=== PATIENT | female | born 1990 | race Caucasian/White ===

== ENCOUNTER 2022-11-22 21:46 | Outpatient (REF) | payer BC, SELFPAY ==
[2022-11-27 10:11] LABS: Age Gdln ACOG Testing Note (.); HPV Aptima Negative (Negative); IGP, Aptima HPV, rfx 16/18,45 Note (.)
== END 2022-11-22 21:47 | disposition home or self-care (01) ==
LOC: LAB 21:46
PROVIDERS: Visit Provider Obstetrics & Gynecology
DX: Z12.4 Encounter for screening for malignant neoplasm of cervix (principal)
CPT/HCPCS: 87624; G0145

== ENCOUNTER 2022-11-27 15:00 | Outpatient (OUT) | payer BC, SELFPAY ==
--- NOTE | 2022-11-27 15:05 | US_ITS ---
[address] [address] Patient Name: URVASHI ROQUE MRN: [id number] date: 1990 Sex: F Assigned Patient Location: US Current Patient Location: Accession/Order Number: [id number] Exam Date: 11/27/2022 15:06 Report Date: 11/27/2022 16:51 At the request of: RODRICK GRIFFIN Procedure: US OB anatomy EXAMINATION: US OB cervical length, US OB anatomy HISTORY: Second trimester Z34.92 COMPARISON: No relevant comparison available. FINDINGS: Pena intrauterine gestation position: Breech presentation, longitudinal lie Amniotic fluid: Subjectively normal Placenta: The placenta partially covers the internal os. Grade 0. Cervix: Closed, 4.1 cm Heart rate: 144 bpm Normal anatomy: Lateral ventricles, cerebellum, posterior fossa, nose/lips, orbits, four-chamber heart, RVOT, LVOT, diaphragm, stomach, kidneys, bladder, umbilical cord arteries, extremities Suboptimal visualization: Three-vessel cord Nonvisualization: Abdominal cord insertion, spine BIOMETRY: BPD: 4.6 cm 20 weeks 0 days, 26% HC: 17.1 cm , 19 weeks 5 days, 10% AC: 15.6 cm 20 weeks 5 days, 50% FL: 3.3 cm 20 weeks 1 days, 29% EFW:351.6 grams ; 12 ounces, 36% FL/AC: 21.0 FL/BPD: 70.7 HC/AC: 1.1 GESTATIONAL AGE: Age by EDC: 20 weeks 4 days SOO by EDC: 04/12/2023 Age by current US: 20 weeks 1 day SOO by current US: IMPRESSION: Closed cervix measuring 4.1 cm Partial placenta previa Electronically authenticated by: PRABHJOT LINDSEY Date: 11/27/2022 16:51
--- NOTE | 2022-11-27 15:05 | US_ITS ---
[address] [address] Patient Name: URVASHI ROQUE MRN: [id number] date: 1990 Sex: F Assigned Patient Location: US Current Patient Location: Accession/Order Number: [id number] Exam Date: 11/27/2022 15:06 Report Date: 11/27/2022 16:51 At the request of: RODRICK GRIFFIN Procedure: US OB cervical length EXAMINATION: US OB cervical length, US OB anatomy HISTORY: Second trimester Z34.92 COMPARISON: No relevant comparison available. FINDINGS: Pena intrauterine gestation position: Breech presentation, longitudinal lie Amniotic fluid: Subjectively normal Placenta: The placenta partially covers the internal os. Grade 0. Cervix: Closed, 4.1 cm Heart rate: 144 bpm Normal anatomy: Lateral ventricles, cerebellum, posterior fossa, nose/lips, orbits, four-chamber heart, RVOT, LVOT, diaphragm, stomach, kidneys, bladder, umbilical cord arteries, extremities Suboptimal visualization: Three-vessel cord Nonvisualization: Abdominal cord insertion, spine BIOMETRY: BPD: 4.6 cm 20 weeks 0 days, 26% HC: 17.1 cm , 19 weeks 5 days, 10% AC: 15.6 cm 20 weeks 5 days, 50% FL: 3.3 cm 20 weeks 1 days, 29% EFW:351.6 grams ; 12 ounces, 36% FL/AC: 21.0 FL/BPD: 70.7 HC/AC: 1.1 GESTATIONAL AGE: Age by EDC: 20 weeks 4 days SOO by EDC: 04/12/2023 Age by current US: 20 weeks 1 day SOO by current US: IMPRESSION: Closed cervix measuring 4.1 cm Partial placenta previa Electronically authenticated by: PRABHJOT LINDSEY Date: 11/27/2022 16:51
[2022-12-02 00:07] LABS: AFP Value 108.9 ng/mL (.); Gest. Age on Collection Date 19.1 weeks (.); Gestat. Age Based On As provided (.); Insulin Dep Diabetes No (.); Maternal Age At EDD 32.1 yr (.); OSBR Risk 1 IN 225 (.); Results Report (.)
== END 2022-11-27 15:01 ==
LOC: US 15:00
PROVIDERS: PCP Family Medicine; Visit Provider Obstetrics & Gynecology
DX: O44.42 Low lying placenta NOS or without hemorrhage, second trimester (principal); Z3A.20 20 weeks gestation of pregnancy
CPT/HCPCS: 76805; 76817; 82105

== ENCOUNTER 2022-11-29 14:29 | Outpatient (OUT) | payer BC, SELFPAY | END 2022-11-29 14:30 | LOC: LAB 11-30 14:30 | PROVIDERS: PCP Family Medicine; Visit Provider Obstetrics & Gynecology | DX: Z34.90 Encounter for supervision of normal pregnancy, unspecified, unspecified trimester (principal) | CPT/HCPCS: 36415 ==

== ENCOUNTER 2023-02-05 11:29 | Outpatient (OUT) | payer BC, SELFPAY ==
[2023-02-05 12:06] LABS: Basophils Absolute Auto 0.1 10^3/uL (0.0-0.1); Basophils Percent Auto 0.3 % (0.2-2.0); Eosinophils Absolute Auto 0.2 10^3/uL (0.0-0.7); Eosinophils Percent Auto 1.1 % (0.9-7.0); Hematocrit 34.8 % (36.0-48.0); Hemoglobin 11.4 g/dL (12.0-16.0); Immature Granulocytes Abs Auto 0.13 10^3/uL (0.00-0.03); Immature Granulocytes Pct Auto 0.8 % (0.0-0.5); Lymphocytes Absolute Auto 3.4 10^3/uL (1.2-3.8); Lymphocytes Percent Auto 21.8 % (20.5-60.0); Mean Corpuscular HGB Conc 32.8 g/dL (29.9-35.2); Mean Corpuscular Hemoglobin 29.2 pg (26.7-34.0); Mean Corpuscular Volume 89.2 fL (81.0-99.0); Mean Platelet Volume 11.7 fL (9.5-13.5); Monocytes Absolute Auto 0.7 10^3/uL (0.3-0.8); Monocytes Percent Auto 4.4 % (1.7-12.0); Neutrophils Absolute Auto 11.2 10^3/uL (1.4-6.5); Neutrophils Percent Auto 71.6 % (43.0-75.0); Platelet Count 177 10^3/uL (150-450); White Blood Count 15.6 10^3/uL (4.0-11.0)
== END 2023-02-05 11:30 | disposition home or self-care (01) ==
LOC: LAB 11:29
PROVIDERS: PCP Family Medicine; Visit Provider Obstetrics & Gynecology
DX: Z34.92 Encounter for supervision of normal pregnancy, unspecified, second trimester (principal)
CPT/HCPCS: 36415; 85025

== ENCOUNTER 2023-03-07 08:50 | Outpatient (OUT) | payer BC, SELFPAY ==
--- NOTE | 2023-03-07 14:04 | US_ITS ---
[address] [address] Patient Name: URVASHI ROQUE MRN: [id number] date: 1990 Sex: F Assigned Patient Location: [facility] Current Patient Location: Accession/Order Number: [id number] Exam Date: 03/07/2023 14:05 Report Date: 03/07/2023 18:27 At the request of: RODRICK GRIFFIN Procedure: US OB BPP w non-stress EXAMINATION: US OB BPP w non-stress HISTORY: O99.283 THYROID DIESEASE COMPARISON: No relevant comparison available. TECHNIQUE: Ultrasound biophysical profile was performed in the radiology department. FINDINGS: BREATHING MOVEMENTS: 2.0 GROSS BODY MOVEMENTS: 2.0 TONE: 2.0 QUALITATIVE AMNIOTIC FLUID VOLUME: 2.0 PRESENTATION: CEPHALIC HEART RATE: 138.5 bpm H.B./min AMNIOTIC FLUID VOLUME: 16.4 cm cm GESTATIONAL AGE: 34 weeks 6 days CONCLUSION: Total biophysical profile score: 8.0 Electronically authenticated by: PRABHJOT LINDSEY Date: 03/07/2023 18:27
[2023-03-07 15:11] VITALS: BP 141/76; PULSE 95
== END 2023-03-07 15:21 | disposition home or self-care (01) ==
LOC: US 08:52 → FBC 14:04
PROVIDERS: PCP Family Medicine; Visit Provider Obstetrics & Gynecology
DX: O99.283 Endocrine, nutritional and metabolic diseases complicating pregnancy, third trimester (principal); E07.9 Disorder of thyroid, unspecified; Z3A.34 34 weeks gestation of pregnancy
CPT/HCPCS: 76818

== ENCOUNTER 2023-03-10 10:30 | Outpatient (OUT) | payer BC, SELFPAY ==
[2023-03-10 19:43] VITALS: BP 144/88; PULSE 93
[2023-03-10 20:09] VITALS: BP 141/93; PULSE 100
[2023-03-10 20:58] LABS: Basophils Percent Auto 0.3 % (0.2-2.0); Eosinophils Absolute Auto 0.1 10^3/uL (0.0-0.7); Eosinophils Percent Auto 0.4 % (0.9-7.0); Hematocrit 34.7 % (36.0-48.0); Immature Granulocytes Abs Auto 0.07 10^3/uL (0.00-0.03); Immature Granulocytes Pct Auto 0.5 % (0.0-0.5); Lymphocytes Absolute Auto 3.6 10^3/uL (1.2-3.8); Lymphocytes Percent Auto 28.3 % (20.5-60.0); Mean Corpuscular HGB Conc 31.7 g/dL (29.9-35.2); Mean Corpuscular Hemoglobin 27.6 pg (26.7-34.0); Mean Corpuscular Volume 87.2 fL (81.0-99.0); Mean Platelet Volume 10.9 fL (9.5-13.5); Monocytes Absolute Auto 0.7 10^3/uL (0.3-0.8); Monocytes Percent Auto 5.1 % (1.7-12.0); Neutrophils Absolute Auto 8.4 10^3/uL (1.4-6.5); Neutrophils Percent Auto 65.4 % (43.0-75.0); Platelet Count 289 10^3/uL (150-450); Red Blood Count 3.98 10^6/uL (4.20-5.40); Red Cell Distribution Width 13.4 % (11.0-15.0); White Blood Count 12.8 10^3/uL (4.0-11.0)
[2023-03-10 21:11] LABS: Alanine Aminotransferase 25 U/L (14-59); Aspartate Amino Transferase 15 U/L (15-37); Uric Acid 2.9 mg/dL (2.6-6.0)
[2023-03-10 21:23] LABS: Bilirubin Urine NEGATIVE (NEGATIVE); Blood Urine NEGATIVE (NEGATIVE); Clarity Urine CLEAR (CLEAR); Color Urine LT. YELLOW (YELLOW); Glucose Urine UA NEGATIVE (NEGATIVE); Ketones Urine NEGATIVE (NEGATIVE); Leukocyte Esterase Urine SMALL (NEGATIVE); Nitrite Urine NEGATIVE (NEGATIVE); Protein Urine NEGATIVE (NEG/TRACE); Specific Gravity Urine 1.025 (1.005-1.025); Urobilinogen Urine 0.2 EU/dL (0.2-1.0)
[2023-03-10 21:24] LABS: Urine Microscopic Indicated YES
[2023-03-10 21:28] LABS: Creatinine Urine Random 109.85 mg/dL (20.00-300.00); Protein Creatinine Ratio Urine 0.11; Total Protein Urine Random 12.1 mg/dL (<=11.9)
[2023-03-10 21:37] LABS: Bacteria Urine MODERATE #/HPF (NONE SEEN); Mucus Urine MODERATE (NONE SEEN); RBC Urine 0-2 #/HPF (0-2); Squamous Epithelial Cell Urine MODERATE #/LPF (NONE/RARE)
[2023-03-10 21:38] LABS: Cast Seen? NONE SEEN #/LPF (NONE SEEN); Crystals Seen? None Seen #/HPF (None Seen); Urine Culture Indicated YES
[2023-03-10 21:46] VITALS: BP 147/87; PULSE 90
== END 2023-03-10 22:07 | disposition home or self-care (01) ==
LOC: FBCO 10:31 → FBC 19:36
PROVIDERS: Obstetrics & Gynecology Gynecology; PCP Family Medicine; Visit Provider Obstetrics & Gynecology
DX: O99.283 Endocrine, nutritional and metabolic diseases complicating pregnancy, third trimester (principal); E07.9 Disorder of thyroid, unspecified; Z3A.35 35 weeks gestation of pregnancy
CPT/HCPCS: 36415; 59025; 81001; 82570; 82575; 84156; 84450; 84460; 84520; 84550; 85025; 87086

== ENCOUNTER 2023-03-13 07:14 | Outpatient (OUT) | payer BC, SELFPAY ==
[2023-03-13 11:32] VITALS: TEMP 36.2
[2023-03-13 11:35] VITALS: BP 129/78; PULSE 82
--- NOTE | 2023-03-13 11:41 | US_ITS ---
[address] [address] Patient Name: URVASHI ROQUE MRN: [id number] date: 1990 Sex: F Assigned Patient Location: [facility] Current Patient Location: [facility] Accession/Order Number: [id number] Exam Date: 03/13/2023 11:45 Report Date: 03/13/2023 19:11 At the request of: RODRICK GRIFFIN Procedure: US OB BPP w non-stress EXAMINATION: US OB BPP w non-stress HISTORY: Thyroid disease during O99.283 COMPARISON: No relevant comparison available. TECHNIQUE: Ultrasound biophysical profile was performed in the radiology department. FINDINGS: BREATHING MOVEMENTS: 2.0 GROSS BODY MOVEMENTS: 2.0 TONE: 2.0 QUALITATIVE AMNIOTIC FLUID VOLUME: 2.0 PRESENTATION: CEPHALIC HEART RATE: 155.2 bpm H.B./min AMNIOTIC FLUID VOLUME: 17.9 cm cm GESTATIONAL AGE: 35 weeks 4 days CONCLUSION: Total biophysical profile score: 8.0 Electronically authenticated by: PRABHJOT LINDSEY Date: 03/13/2023 19:11
[2023-03-13] MEDS: BETAMETHASONE ACE/BETAMETHASONE SOD PHOS 30 MG/5 ML 12 MG IM (12:34)
== END 2023-03-13 12:45 | disposition home or self-care (01) ==
LOC: US 07:15 → FBC 11:26
PROVIDERS: PCP Family Medicine; Visit Provider Obstetrics & Gynecology
DX: O13.3 Gestational [pregnancy-induced] hypertension without significant proteinuria, third trimester (principal); Z3A.35 35 weeks gestation of pregnancy; O99.283 Endocrine, nutritional and metabolic diseases complicating pregnancy, third trimester; E07.9 Disorder of thyroid, unspecified
CPT/HCPCS: 76818; 87081; 96372; J0702

== ENCOUNTER 2023-03-13 20:03 | Outpatient (REF) | payer BC, SELFPAY | END 2023-03-13 20:04 | disposition home or self-care (01) | LOC: LAB 20:03 | PROVIDERS: PCP Family Medicine; Visit Provider Obstetrics & Gynecology | DX: Z34.93 Encounter for supervision of normal pregnancy, unspecified, third trimester (principal) | CPT/HCPCS: 87081 ==

== ENCOUNTER 2023-03-14 07:29 | Outpatient (RCR) | payer BC, SELFPAY ==
[2023-03-14] MEDS: BETAMETHASONE ACE/BETAMETHASONE SOD PHOS 30 MG/5 ML 12 MG IM (11:05)
[2023-03-14 11:13] VITALS: BP 128/88; PULSE 117; RESP 16; TEMP 36.6; O2SAT 98
--- NOTE | 2023-03-14 11:15 | PC.NURSE ---
1100: Pt to [facility] amb. with toddler son. Seated in chair. VSS. Denies adverse reaction from previous injection day before. 1105: Medicated with Celestone 12mg IM to left dorsal gluteal. No bleeding to site. Pt. tolerates without c/o. 1110: D/c'd amb. to home.
== END 2023-04-10 23:59 | disposition home or self-care (01) ==
LOC: INF 07:29
PROVIDERS: PCP Family Medicine; Visit Provider Obstetrics & Gynecology
DX: O36.8990 Maternal care for other specified fetal problems, unspecified trimester, not applicable or unspecified (principal); Z3A.00 Weeks of gestation of pregnancy not specified
CPT/HCPCS: 96372; J0702

== ENCOUNTER 2023-03-16 07:50 | Outpatient (OUT) | payer BC, SELFPAY ==
[2023-03-16 11:06] VITALS: BP 120/69; PULSE 96
== END 2023-03-16 11:34 | disposition home or self-care (01) ==
LOC: FBCO 07:51 → FBC 11:00
PROVIDERS: PCP Family Medicine; Visit Provider Obstetrics & Gynecology
DX: O99.283 Endocrine, nutritional and metabolic diseases complicating pregnancy, third trimester (principal); E07.9 Disorder of thyroid, unspecified; Z3A.00 Weeks of gestation of pregnancy not specified
CPT/HCPCS: 59025

== ENCOUNTER 2023-03-20 07:53 | Outpatient (OUT) | payer BC, SELFPAY ==
--- NOTE | 2023-03-20 11:14 | US_ITS ---
[address] [address] Patient Name: URVASHI ROQUE MRN: [id number] date: 1990 Sex: F Assigned Patient Location: [facility] Current Patient Location: Accession/Order Number: [id number] Exam Date: 03/20/2023 11:16 Report Date: 03/20/2023 18:45 At the request of: RODRICK GRIFFIN Procedure: US OB BPP w non-stress EXAMINATION: US OB BPP w non-stress HISTORY: Thyroid disease in third trimester O99.283, E07.9 COMPARISON: No relevant comparison available. TECHNIQUE: Ultrasound biophysical profile was performed in the radiology department. FINDINGS: BREATHING MOVEMENTS: 2.0 GROSS BODY MOVEMENTS: 2.0 TONE: 2.0 QUALITATIVE AMNIOTIC FLUID VOLUME: 2.0 PRESENTATION: CEPHALIC HEART RATE: 157.9 bpm H.B./min AMNIOTIC FLUID VOLUME: 15.7 cm cm GESTATIONAL AGE: 36 weeks 4 days CONCLUSION: Total biophysical profile score: 10.0 Electronically authenticated by: PRABHJOT LINDSEY Date: 03/20/2023 18:45
[2023-03-20 11:50] VITALS: BP 132/76; PULSE 89
[2023-03-20 12:34] VITALS: TEMP 35.8
== END 2023-03-20 13:00 | disposition home or self-care (01) ==
LOC: US 07:53 → FBC 11:12
PROVIDERS: PCP Family Medicine; Visit Provider Obstetrics & Gynecology
DX: O99.283 Endocrine, nutritional and metabolic diseases complicating pregnancy, third trimester (principal); E07.9 Disorder of thyroid, unspecified; Z3A.36 36 weeks gestation of pregnancy
CPT/HCPCS: 76818

== ENCOUNTER 2023-03-22 06:00 | Inpatient (IN) | payer BC, SELFPAY ==
[2023-03-22] VITALS (28 sets, daily range): BP systolic 113–200; BP diastolic 63–104; PULSE 67–102; RESP 18; TEMP 36.2–36.4
[2023-03-22 07:36] LABS: Hematocrit 34.5 % (36.0-48.0); Hemoglobin 11.1 g/dL (12.0-16.0); Mean Corpuscular HGB Conc 32.2 g/dL (29.9-35.2); Mean Corpuscular Hemoglobin 27.5 pg (26.7-34.0); Mean Corpuscular Volume 85.6 fL (81.0-99.0); Platelet Count 210 10^3/uL (150-450); Red Blood Count 4.03 10^6/uL (4.20-5.40); Red Cell Distribution Width 14.1 % (11.0-15.0); White Blood Count 17.8 10^3/uL (4.0-11.0)
[2023-03-22 08:15] LABS: Cannabinoid Screen Urine POSITIVE (NEGATIVE); Phencyclidine Screen Urine NEGATIVE (NEGATIVE)
[2023-03-22 08:16] LABS: Amphetamine Screen Urine NEGATIVE (NEGATIVE); Barbiturates Screen Urine NEGATIVE (NEGATIVE); Benzodiazepines Screen Urine NEGATIVE (NEGATIVE); Buprenorphine Screen Urine NEGATIVE (NEGATIVE); Cocaine Screen Urine NEGATIVE (NEGATIVE); Methadone Screen Urine NEGATIVE (NEGATIVE); Methamphetamines Screen Urine NEGATIVE (NEGATIVE); Opiate Screen Urine NEGATIVE (NEGATIVE); Oxycodone Screen Urine NEGATIVE (NEGATIVE); Tricyclic Antidepressant Urine NEGATIVE (NEGATIVE)
[2023-03-22] MEDS: 0.9 % SODIUM CHLORIDE 1,000 ML 125 ML IV ×2 (11:46→15:45)
[2023-03-22] MEDS: ONDANSETRON PF 4 MG/2 ML VIAL IV ×2 (13:03→21:10)
[2023-03-22] MEDS: FENTANYL CITRATE/PF 100 MCG/2 ML VIAL EPIDURAL (15:45)
--- NOTE | 2023-03-22 16:53 | PM.OBPRCVD ---
Procedure events: No Care Intrapartal events: None Induction method: per pitocin protocol Delivery augmentation: rupture of membranes and pitocin Delivery monitor: external FHT and external uterine Route of delivery: Episiotomy Description: none Laceration description: periurethral - 1st degree Delivery repair: Vicryl Estimated blood loss (mL): 300 Anesthesia type: Epidural Disposition: PACU Infant Delivery date: 03/22/23 Gender: female presentation: vertex Placental delivery description: Spontaneous cord description: 3 Vessels
[2023-03-23 01:22] VITALS: BP 133/74; PULSE 79; TEMP 36.8
[2023-03-23] MEDS: ONDANSETRON PF 4 MG/2 ML VIAL IV (04:50)
[2023-03-23 06:31] LABS: Basophils Percent Auto 0.3 % (0.2-2.0); Eosinophils Percent Auto 0.2 % (0.9-7.0); Hematocrit 31.3 % (36.0-48.0); Hemoglobin 9.8 g/dL (12.0-16.0); Immature Granulocytes Abs Auto 0.11 10^3/uL (0.00-0.03); Immature Granulocytes Pct Auto 0.8 % (0.0-0.5); Lymphocytes Absolute Auto 2.6 10^3/uL (1.2-3.8); Lymphocytes Percent Auto 17.8 % (20.5-60.0); Mean Corpuscular HGB Conc 31.3 g/dL (29.9-35.2); Mean Corpuscular Hemoglobin 26.8 pg (26.7-34.0); Mean Corpuscular Volume 85.8 fL (81.0-99.0); Mean Platelet Volume 10.4 fL (9.5-13.5); Monocytes Absolute Auto 0.7 10^3/uL (0.3-0.8); Monocytes Percent Auto 4.5 % (1.7-12.0); Neutrophils Absolute Auto 11.1 10^3/uL (1.4-6.5); Neutrophils Percent Auto 76.4 % (43.0-75.0); Platelet Count 252 10^3/uL (150-450); Red Blood Count 3.65 10^6/uL (4.20-5.40); White Blood Count 14.6 10^3/uL (4.0-11.0)
--- NOTE | 2023-03-23 07:25 | W.PC.ACHO ---
Registration Status: ADM IN Primary Language: Bhutanese Preferred Language: Bhutanese Active Medications Generic Name Dose Route Start Last Admin Trade Name Freq PRN Reason Stop Dose Admin Acetaminophen 650 mg 03/22/23 16:52 Acetaminophen 325 Mg Tablet PO Q6H PRN Mild Pain Al Hydroxide/Mg Hydroxide 2,400 mg 03/22/23 16:52 Magnesium Hydroxide 2,400 Mg/10 Ml Oral.Susp PO Q6H PRN Dyspepsia Benzocaine/Menthol 1 applic 03/22/23 16:52 Benzocaine/Menthol 85 Gram [place] Bottle TOPICAL Q2H PRN Pain Carboprost Tromethamine 250 mcg 03/22/23 06:22 Carboprost Tromethamine 250 Mcg/Ml 1 Ml Vial IM 03/24/23 06:22 Q15M PRN Bleeding Diphtheria/Pertussis/Tetanus Vacc 0.5 ml 03/24/23 09:00 Adacel Diph,Pertuss(Acell),Tet Vac/Pf 0.5 Ml Adult Syringe IM 03/24/23 09:01 .ONCE ONE Docusate Sodium 100 mg 03/23/23 09:00 Docusate Sodium 100 Mg Capsule PO BID LUZMARIA Ephedrine Sulfate 5 mg 03/22/23 11:29 Ephedrine Sulfate 50 Mg/Ml Vial IV 03/23/23 11:30 Q5M PRN Blood Pressure - Low Sodium Chloride 1,000 mls @ 125 mls/hr 03/22/23 06:30 03/22/23 15:45 Sodium Chloride 0.9% 1,000 Ml IV 125 mls/hr .Q8H LUZMARIA Administration Oxytocin/Sodium Chloride 10 unit in 500 mls @ 6 mls/hr 03/22/23 09:30 03/22/23 12:50 Pitocin 10 Unit/500 Ml-Ns IV 18 mls/hr CONT LUZMARIA Infusion Ibuprofen 600 mg 03/22/23 16:52 Ibuprofen 600 Mg Tablet PO Q6H PRN Moderate Pain Lidocaine 5 ml 03/22/23 06:27 Lidocaine Viscous 2% 15 Ml Solution TOPICAL ONCE PRN Pain Lidocaine 1 ml 03/22/23 06:27 Lidocaine Hcl 1% 200 Mg/20 Ml Mdv INJ ONCE PRN Pain Lidocaine 5 ml 03/22/23 11:29 Lidocaine Hcl 2% Pf 100 Mg/5 Ml Vial INJ 03/23/23 11:31 Q1H PRN epidural Measles/Mumps/Rubella Vaccine Live 0.5 ml 03/24/23 09:00 Measles,Mumps,Rubella Vacc/Pf 0.5 Ml Vial SQ 03/24/23 09:01 .ONCE ONE Methylergonovine Maleate 0.2 mg 03/22/23 06:22 Methylergonovine Maleate 0.2 Mg/Ml Ampule IM 03/24/23 06:22 ONCE PRN Uterine Contractility/Contract Methylergonovine Maleate 0.2 mg 03/22/23 06:22 Methylergonovine Maleate 0.2 Mg Tablet PO 03/24/23 06:22 Q4H PRN Uterine Contractility/Contract Misoprostol 600 mcg 03/22/23 06:22 Misoprostol 100 Mcg Tablet PO 03/24/23 06:22 ONCE PRN Uterine Bleeding Misoprostol 800 mcg 03/22/23 06:22 Misoprostol 100 Mcg Tablet SL 03/24/23 06:22 ONCE PRN Uterine Bleeding Misoprostol 1,000 mcg 03/22/23 06:22 Misoprostol 100 Mcg Tablet UT 03/24/23 06:22 ONCE PRN Uterine Bleeding Naloxone HCl 0.4 mg 03/22/23 11:29 Naloxone Hcl 0.4 Mg/Ml Vial IV 03/23/23 11:30 ONCE PRN epidural Ondansetron HCl 4 mg 03/22/23 06:22 03/23/23 04:50 Ondansetron Pf 4 Mg/2 Ml Vial IV 4 mg Q6H PRN Administration Nausea And Vomiting Ondansetron HCl 4 mg 03/22/23 06:22 Ondansetron 4 Mg Rapdis Tablet SL Q6H PRN Nausea And Vomiting Oxytocin 10 unit 03/22/23 06:22 Oxytocin 10 Unit/Ml Vial IM 03/24/23 06:22 ONCE PRN Bleeding Senna 17.2 mg 03/22/23 20:00 Sennosides 8.6 Mg Tablet PO QHS PRN Constipation Simethicone 80 mg 03/22/23 16:52 Simethicone 80 Mg Tab.Chew PO QID PRN Abdominal Distention Temazepam 15 mg 03/22/23 16:52 Temazepam 15 Mg Capsule PO QHS PRN Sleep Witch Amaya/Glycerin 1 pad 03/22/23 16:52 Glycerin/Witch Amaya Pads TOPICAL Q2H PRN Pain Diet Category Date Time Status Regular Consistency Diet Diet 03/22/23 16:52 Active Respiratory Oxygen Delivery Method Room Air Catheter Date Urinary Catheter Removed 03/22/23
--- NOTE | 2023-03-23 08:07 | PM.OBPN ---
OB - PN: Subj Subjective Patient comments: no complaints and pain well controlled [place] status: doing well Exam Constitutional Vital Signs, click to edit/add: Last Vital Signs Temp 98.2 F 03/23/23 01:22 Pulse 79 03/23/23 01:22 Resp 18 03/22/23 17:13 BP 133/74 03/23/23 01:22 O2 Del Method Room Air 03/22/23 17:13 Documenting provider has reviewed patient's vital signs: yes Common normals: no apparent distress Respiratory Common normals: normal respiratory effort and clear to auscultation bilaterally Cardio Common normals: regular rate and regular rhythm Extremity Common normals: no calf tenderness Results Labs Labs: Short CBC 03/23/23 Range/Units 06:23 WBC 14.6 H (4.0-11.0) 10^3/uL Hgb 9.8 L (12.0-16.0) g/dL Hct 31.3 L (36.0-48.0) % Plt Count 252 (150-450) 10^3/uL OB - PN: A/P Plan - Vaginal Delivery day: 1 Plan: routine care Time Spent with Patient Time: Total time spent is greater than 50% in coordination of care (as documented) at patient's floor/unit and/or counseling patient: Total time spent with greater than 50% in coordination of care (as documented) at patient's floor/unit and/or counseling patient: less than 15 minutes
[2023-03-23 09:25] VITALS: RESP 16
[2023-03-23 09:27] VITALS: BP 138/79; PULSE 96; TEMP 36.3
[2023-03-23] MEDS: ONDANSETRON 4 MG RAPDIS TABLET SL (14:27)
--- NOTE | 2023-03-23 15:31 | SWNOTE1 ---
SW consulted due to positive THC drug screen. SW met with pt and father of baby. Pt's sister in room as well. Pt and father of baby did voice they have everything they need at home for baby. They do have a 2 year old son at home as well. Pt and father of baby are appropriate with baby. Pt does admit to THC use during . Pt had nausea and vomiting during , this helped with it. Pt was prescribed Zofran as well and used that on and off as well. Pt does not plan on continuing use at home. Pt does not have a medical marijuana card. Babies cord was sent. 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 At this time no questions or concerns. SHADI called [facility] CPS and made report. HIPPA form sent to Kitty.
[2023-03-23 16:46] VITALS: BP 167/94; PULSE 78
[2023-03-28 10:11] LABS: Cannabinoid Positive (.); Carboxy THC Conf, MS, UR >750 ng/mL (Cutoff=10)
== END 2023-03-23 18:25 | disposition home or self-care (01) | DRG 807 ==
PROVIDERS: Admitting Provider Obstetrics & Gynecology; PCP Family Medicine; Visit Provider Obstetrics & Gynecology
DX: O99.284 Endocrine, nutritional and metabolic diseases complicating childbirth (principal); Z37.0 Single live birth; E89.0 Postprocedural hypothyroidism; O71.82 Other specified trauma to perineum and vulva; Z3A.37 37 weeks gestation of pregnancy; Z88.1 Allergy status to other antibiotic agents; Z88.0 Allergy status to penicillin; Z88.2 Allergy status to sulfonamides; Z79.890 Hormone replacement therapy; Z79.899 Other long term (current) drug therapy; Z90.49 Acquired absence of other specified parts of digestive tract; Z85.850 Personal history of malignant neoplasm of thyroid; Z92.3 Personal history of irradiation; Z83.3 Family history of diabetes mellitus; Z82.49 Family history of ischemic heart disease and other diseases of the circulatory system; Z83.49 Family history of other endocrine, nutritional and metabolic diseases
CPT/HCPCS: 36415; 59050; 59410; 80307; 80349; 85025; 85027; 86850; 86900; 86901; 96365; 96375; 96376

== ENCOUNTER 2023-03-28 09:55 | Observation (INO) | payer BC, SELFPAY ==
[2023-03-28] VITALS (27 sets, daily range): BP systolic 132–185; BP diastolic 78–111; PULSE 73–109; RESP 16–20; TEMP 36.4–36.8; O2SAT 94
--- NOTE | 2023-03-28 10:21 | PC.NURSE ---
Pt states feels well and denies any concerns. Feel so much better than after my first baby Denies headache,visual disturbances or epigastric discomfort. Good appetite with BM since delivery. Milk in and feeding is going great response. States had induced hypertension with both pregnancies, induced at 37 weeks for elevated pressures and was taking Labetolol 200mg BID prior to delivery. No medication prescribe at discharge. Today has elevated BP's, no complaints or symptoms. TC to Dr Jara and reported initial bp, states Stop there, Admit her and I will call back with orders. Currently in OR case. Care relinquished to Cheryl SHERMAN. Pt moved to room 251 for further care.
[2023-03-28] MEDS: LABETALOL HCL 200 MG TABLET PO (10:53)
[2023-03-28] MEDS: MAGNESIUM SULFATE IN WATER 2 GM/50 ML PREMIX IV (10:57)
[2023-03-28] MEDS: 0.9 % SODIUM CHLORIDE 1,000 ML 75 ML IV (10:58)
[2023-03-28] MEDS: MAGNESIUM SULFATE IN WATER 40 GM/1,000 ML IV.SOLN IV (11:18)
[2023-03-28 11:43] LABS: Basophils Absolute Auto 0.1 10^3/uL (0.0-0.1); Basophils Percent Auto 0.6 % (0.2-2.0); Eosinophils Absolute Auto 0.2 10^3/uL (0.0-0.7); Eosinophils Percent Auto 1.2 % (0.9-7.0); Hematocrit 35.6 % (36.0-48.0); Hemoglobin 11.3 g/dL (12.0-16.0); Immature Granulocytes Abs Auto 0.07 10^3/uL (0.00-0.03); Immature Granulocytes Pct Auto 0.5 % (0.0-0.5); Lymphocytes Absolute Auto 3.3 10^3/uL (1.2-3.8); Lymphocytes Percent Auto 22.4 % (20.5-60.0); Mean Corpuscular HGB Conc 31.7 g/dL (29.9-35.2); Mean Corpuscular Hemoglobin 26.8 pg (26.7-34.0); Mean Corpuscular Volume 84.6 fL (81.0-99.0); Mean Platelet Volume 10.1 fL (9.5-13.5); Monocytes Absolute Auto 0.6 10^3/uL (0.3-0.8); Monocytes Percent Auto 3.9 % (1.7-12.0); Neutrophils Absolute Auto 10.5 10^3/uL (1.4-6.5); Neutrophils Percent Auto 71.4 % (43.0-75.0); Platelet Count 396 10^3/uL (150-450); Red Blood Count 4.21 10^6/uL (4.20-5.40); Red Cell Distribution Width 14.3 % (11.0-15.0); White Blood Count 14.7 10^3/uL (4.0-11.0)
--- NOTE | 2023-03-28 11:47 | PC.NURSE ---
0950- Patient admitted as observation patient following follow up. Report received from LANE Hernandez IBCLC regarding elevated blood pressures during follow up, patient asymptomatic, +3 pitting edema BLE, good appetite, and BM this morning. LANE Hernandez IBCLC spoke with Dr. Jara's surgery nurse and received orders to admit patient as observation status and Dr. Jara will call back with further orders. Seizure precautions initiated. Ice water provided. 0955- Patient admitted into room 251 for observation of HTN. Initial assessment completed by this RN. Lungs clear bilaterally throughout, patient denies shortness of breath or difficulty breathing, bowel sounds present, patient reports BM this morning, and flatus present. Heart sounds strong and regular. Patient denies chest pain. Upper DTRs +1 bilaterally and lower DTRs +1 bilaterally. Clonus absent. Patient denies headache, epigastric pain, vision changes, or dizziness. States has been feeling great since going home. Temp WNL at 98.0 F orally. See vital sign monitor capture for recurring vital signs. 1013- 20g IV initiated in R hand. Saline locked at this time until further orders received. Patient updated on plan of care and RN educates patient on awaiting orders from Dr. Jara. 1029- Dr. Jara called, no answer at this time. Surgery called and Dr. Jara no longer in unit. 1032- Dr. Jara called, no answer at this time. 1033- Dr. Jara's office called. Office nurse states Dr. Jara in patient room at this time. RN urges importance of phone call. Dr. Jara aware of elevated blood pressures SBP >160s/ DBP >90s and states he will call back in 5 mins to give further orders. 1034- Dr. Jara calls back with orders to obtain IV access, run PIH panel labs, administer Labetalol 200mg PO now, Labetalol 200mg PO BID to begin after stat dose, Magnesium sulfate 2gm bolus dose to be administered now followed by 2gm maintenance dose. Orders read back and verified.
[2023-03-28 11:51] LABS: INR <0.93; Prothrombin Time 9.3 sec (9.0-11.6)
[2023-03-28 11:52] LABS: D Dimer 1.39 mg/L FEU (<=0.59)
[2023-03-28 11:56] LABS: Alanine Aminotransferase 22 U/L (14-59); Albumin Globulin Ratio 0.6; Albumin Level 2.6 g/dL (3.4-5.0); Alkaline Phosphatase 100 U/L (46-116); Anion Gap 13.9; Aspartate Amino Transferase 22 U/L (15-37); BUN Creatinine Ratio 10.3; Bilirubin Total 0.3 mg/dL (0.2-1.0); Calcium 8.6 mg/dL (8.5-10.1); Carbon Dioxide 25.3 mmol/L (21.0-32.0); Chloride 103 mmol/L (98-107); Estimated GFR (African America >60 (>=60); Estimated GFR (Non-African Ame >60 (>=60); Globulin 4.2 g/dL; Glucose 121 mg/dL (74-106); Potassium 3.2 mmol/L (3.5-5.1); Sodium 139 mmol/L (136-145); Total Protein 6.8 g/dL (6.4-8.2); Uric Acid 3.2 mg/dL (2.6-6.0)
[2023-03-28] MEDS: LABETALOL HCL 100 MG TABLET PO (13:05)
[2023-03-28] MEDS: ACETAMINOPHEN 500 MG TABLET 1000 MG PO (16:10)
[2023-03-28] MEDS: LABETALOL HCL 200 MG TABLET 300 MG PO (22:28)
[2023-03-29] VITALS (11 sets, daily range): BP systolic 116–161; BP diastolic 76–89; PULSE 72–86; RESP 14; TEMP 36.7–36.8
[2023-03-29] MEDS: 0.9 % SODIUM CHLORIDE 1,000 ML 50 ML IV (00:37)
--- NOTE | 2023-03-29 01:56 | PC.NURSE ---
Report given to Jasson Lopez RN.
[2023-03-29] MEDS: MAGNESIUM SULFATE IN WATER 40 GM/1,000 ML IV.SOLN IV (07:18)
--- NOTE | 2023-03-29 07:44 | PM.OBPN ---
OB - PN: Subj Subjective Interval history: pt presented to l&d for follow up, bp's were elevated, pt had a very mild headache, pt denies epigastric pain or visual changes, urinating well, pt denies cp sob ct, ambulating well Patient comments: pain well controlled infant status: doing well and well Exam Constitutional Vital Signs, click to edit/add: Last Vital Signs Temp 98.1 F 03/29/23 04:30 Pulse 76 03/29/23 07:21 Resp 16 03/28/23 23:28 BP 148/89 H 03/29/23 07:21 Pulse Ox 94 L 03/28/23 09:25 O2 Del Method Room Air 03/28/23 23:28 Documenting provider has reviewed patient's vital signs: yes Common normals: no apparent distress Respiratory Common normals: clear to auscultation bilaterally Cardio Common normals: regular rate and regular rhythm GI Common normals: Normal to inspection, nondistended, normoactive bowel sounds present Extremity Common normals: no clubbing, cyanosis or edema and no calf tenderness Results Labs Labs: Short CBC 03/28/23 Range/Units 11:01 WBC 14.7 H (4.0-11.0) 10^3/uL Hgb 11.3 L (12.0-16.0) g/dL Hct 35.6 L (36.0-48.0) % Plt Count 396 (150-450) 10^3/uL BMP 03/28/23 11:01 Sodium 139 Potassium 3.2 L Chloride 103 Carbon Dioxide 25.3 BUN 6.0 L Creatinine 0.58 Glucose 121 H Calcium 8.6 Liver Function 03/28/23 Range/Units 11:01 Total Bilirubin 0.3 (0.2-1.0) mg/dL AST 22 (15-37) U/L ALT 22 (14-59) U/L Alkaline Phosphatase 100 (46-116) U/L Albumin 2.6 L (3.4-5.0) g/dL OB - PN: A/P Plan - Vaginal Delivery day: 7 Comment: elevated bp-labs reviewed, cont magnesium, if bp controlled will dc home later today on labetolol, precautions given, rto l&d tomorrow for bp check Time Spent with Patient Time: Total time spent is greater than 50% in coordination of care (as documented) at patient's floor/unit and/or counseling patient: Total time spent with greater than 50% in coordination of care (as documented) at patient's floor/unit and/or counseling patient: 25 - 35 minutes
[2023-03-29] MEDS: LABETALOL HCL 200 MG TABLET 300 MG PO (08:01)
--- NOTE | 2023-03-29 08:07 | W.PC.ACHO ---
Registration Status: ADM CLYDE Primary Language: Kittitian Preferred Language: Kittitian Active Medications Generic Name Dose Route Start Last Admin Trade Name Freq PRN Reason Stop Dose Admin Acetaminophen 1,000 mg 03/28/23 15:24 03/28/23 16:10 Acetaminophen 500 Mg Tablet PO 1,000 mg Q6H PRN Administration Pain Calcium Gluconate 1,000 mg 03/28/23 10:36 Calcium Gluconate 1,000 Mg/10 Ml Vial IVP ONCE PRN Magnesium Toxicity Magnesium Sulfate 40 gm in 1,000 mls @ 50 mls/hr 03/28/23 10:45 03/28/23 11:18 Magnesium Sulf 40 G/1,000 Ml IV 50 mls/hr Q13H LUZMARIA Administration Sodium Chloride 1,000 mls @ 50 mls/hr 03/28/23 21:34 Sodium Chloride 0.9% 1,000 Ml IV .Q20H LUZMARIA Labetalol HCl 300 mg 03/28/23 23:00 03/28/23 22:28 Labetalol Hcl 200 Mg Tablet PO 300 mg BID LUZMARIA Administration Diet Category Date Time Status Regular Consistency Diet Diet 03/28/23 12:25 Active IV Insertion/Site Date of IV Line Insertion [ 03/28/23 Short PIV (<1.75 in) 20g right Hand] IV Insertion Time [Short PIV ( 10:13 <1.75 in) 20g right Hand] Neurology Patient orientation (short person,place,time,situation list) Respiratory Pulse Oximetry 94 Oxygen Delivery Method Room Air Oxygen Delivery Method Room Air Oxygen Delivery Method Room Air Oxygen Delivery Method Room Air Oxygen Delivery Method Room Air Oxygen Delivery Method Room Air Cardiology Heart Sounds Strong,Regular Bowels Date of Last Bowel Movement [ 03/28/23 All Quadrants] Date of Last Bowel Movement 03/28/23 Renal Bladder Pattern Continent
--- NOTE | 2023-03-29 08:07 | W.PC.ACHO ---
Registration Status: ADM CLYDE Primary Language: Luxembourger Preferred Language: Luxembourger Active Medications Generic Name Dose Route Start Last Admin Trade Name Freq PRN Reason Stop Dose Admin Acetaminophen 1,000 mg 03/28/23 15:24 03/28/23 16:10 Acetaminophen 500 Mg Tablet PO 1,000 mg Q6H PRN Administration Pain Calcium Gluconate 1,000 mg 03/28/23 10:36 Calcium Gluconate 1,000 Mg/10 Ml Vial IVP ONCE PRN Magnesium Toxicity Magnesium Sulfate 40 gm in 1,000 mls @ 50 mls/hr 03/28/23 10:45 03/29/23 07:18 Magnesium Sulf 40 G/1,000 Ml IV 50 mls/hr Q13H LUZMARIA Administration Sodium Chloride 1,000 mls @ 50 mls/hr 03/28/23 21:34 03/29/23 00:37 Sodium Chloride 0.9% 1,000 Ml IV 50 mls/hr .Q20H LUZMARIA Administration Labetalol HCl 300 mg 03/29/23 08:00 03/29/23 08:01 Labetalol Hcl 200 Mg Tablet PO 300 mg TID LUZMARIA Administration Diet Category Date Time Status Regular Consistency Diet Diet 03/28/23 12:25 Active IV Insertion/Site Date of IV Line Insertion [ 03/28/23 Short PIV (<1.75 in) 20g right Hand] IV Insertion Time [Short PIV ( 10:13 <1.75 in) 20g right Hand] Neurology Patient orientation (short person,place,time,situation list) Respiratory Pulse Oximetry 94 Oxygen Delivery Method Room Air Oxygen Delivery Method Room Air Oxygen Delivery Method Room Air Oxygen Delivery Method Room Air Oxygen Delivery Method Room Air Oxygen Delivery Method Room Air Cardiology Heart Sounds Strong,Regular Bowels Date of Last Bowel Movement [ 03/28/23 All Quadrants] Date of Last Bowel Movement 03/28/23 Renal Bladder Pattern Continent
[2023-03-29] MEDS: ACETAMINOPHEN 500 MG TABLET 1000 MG PO (09:26)
--- NOTE | 2023-03-29 10:24 | PC.NURSE ---
LC into room, infant at breast with active nursing noted. Mom uses boppy pillow for support and continues to support infant back. Denies concerns with . Pt aware of [facility] group and continued support with services as needed.
--- NOTE | 2023-03-29 10:34 | PC.NURSE ---
1010- Magnesium infusion discontinued per physicians orders. BP assessed, 116/82 at this time.
== END 2023-03-29 13:16 | disposition home or self-care (01) ==
LOC: FBC 09:59
PROVIDERS: Admitting Provider Obstetrics & Gynecology; PCP Family Medicine; Visit Provider Obstetrics & Gynecology
DX: O16.5 Unspecified maternal hypertension, complicating the puerperium (principal)
CPT/HCPCS: 36415; 80053; 84550; 85025; 85378; 85384; 85610; 85730; 86850; 86900; 86901; 96365; 96366; 96376; G0378

== ENCOUNTER 2024-01-17 16:30 | Outpatient (OUT) | payer BC, SELFPAY ==
--- OUTSIDE RECORDS SUMMARY | 2024-01-17 16:35 | XMS_ITS | CCD ---
Author Organization [facility] Care Team Providers Care Technical Service Representative Name Role Phone Ko Monique Unavailable Unavailable ENGELER, G NORMA Referring Unavailable ENGELER, G NORMA Attending Unavailable ENGELER, G NORMA Referring Unavailable ENGELER, G NORMA Referring Unavailable ENGELER, G NORMA Referring Unavailable ENGELER, G NORMA Referring Unavailable ENGELER, G NORMA Attending Unavailable ENGELER, G NORMA Referring Unavailable ENGELER, G NORMA Attending Unavailable ENGELER, G NORMA Referring Unavailable ENGELER, G NORMA Referring Unavailable ENGELER, G NORMA Referring Unavailable ENGELER, G NORMA Referring Unavailable JULIENNE HORTA Referring Unavailable SHANNON, AIXA Consulting Unavailable SHANNONAIXA WALDROP Admitting Unavailable SHANNONAIXA WALDROP Attending Unavailable NADERER, SKINNY A Primary Care Unavailable MAREK ., DR MENSAH Admitting Unavailable MAREK ., DR MENSAH Attending Unavailable NADERER, SKINNY A Primary Care Unavailable MAREK ., DR MENSAH Consulting Unavailable NADERER, SKINNY A Primary Care Unavailable SHANNON, AIXA Admitting Unavailable SHANNONAIXA WALDROP Attending Unavailable SHANNONAIXA Consulting Unavailable NADERER, SKINNY A Primary Care Unavailable MAREK ., DR MENSAH Admitting Unavailable MAREK ., DR MENSAH Attending Unavailable MAREK ., DR MENSAH Consulting Unavailable LAURA, DR RUDDY Goldstein Consulting Unavailable SHANNON, AIXA Admitting Unavailable SHANNONAIXA WALDROP Attending Unavailable SHANNONAIXA WALDROP Consulting Unavailable NADERER, SKINNY A Primary Care Unavailable FAWWAD, GALVAN H Admitting Unavailable FAWWAD, GALVAN H Attending Unavailable FAWWAD, GALVAN H Consulting Unavailable NADERER, SKINNY A Primary Care Unavailable Marek, Rodrick Attending Provider [phone] Skinny Schumacher Primary Care Unavailable Rodrick Jara Attending Unavailable Rodrick Jara Admitting Unavailable FAISAL MANSFIELD Attending Unavailable Allergies Allergy Classification Reported Allergen(s) Allergy Type Date of Onset Reaction(s) Facility (1 source) Sulfamethoxazole / Trimethoprim; Translations: [SULFAMETHOXAZOLE-TR IMETHOPRIM] Drug Allergy [facility] Repository (1 source) Amoxicillin / Clavulanate Drug Allergy [facility] Repository (1 source) bee venom Drug allergy (disorder) [facility] Repository (1 source) Sulfamethoxazole / Trimethoprim Drug Allergy [facility] Repository Problems Active Problems Problem Classification Problem Date Documented Da te Episodic/Chronic Cancer of thyroid (1 source) Malignant neoplasm of thyroid gland; Translations: [Malignant neoplasm of thyroid gland] Onset: 07-19-2016 Chronic Essential hypertension (1 source) Essential (primary) hypertension; Translations: [Essential (primary) hypertension] Onset: 03-28-2023 Chronic Immunizations and screening for infectious disease (1 source) Encounter for screening for other infectious and parasitic diseases; Translations: [ENC SCREENING OTH INF PARASITIC DZ] Onset: 09-15-2022 Episodic Menstrual disorders (4 sources) Irregular menstruation, unspecified; Translations: [IRREGULAR MENSTRUATION UNSPECIFIED] Onset: 08-18-2022 Chronic Other and delivery including normal (1 source) Encounter for supervision of normal , unspecified, first trimester; Translations: [ENC SUP NORMAL PREG UNS FIRST TRI] Onset: 09-05-2022 Episodic Residual codes; unclassified (1 source) Pain, unspecified; Translations: [Pain, unspecified] Onset: 04-03-2018 Unclassified (3 sources) CONTACT W/AND (SUSP) EXPOS COVID-19; Translations: [CONTACT W/AND (SUSP) EXPOS COVID-19] Onset: 09-15-2022 Past or Other Problems Problem Classification Problem Date Documented Da te Episodic/Chronic Cancer of thyroid (1 source) Personal history of malignant neoplasm of thyroid; Translations: [Personal history of malignant neoplasm of thyroid] Onset: 04-03-2018 Episodic Unclassified (1 source) CONTACT W/AND (SUSP) EXPOS COVID-19; Translations: [CONTACT W/AND (SUSP) EXPOS COVID-19] Onset: 09-11-2022 Results Test Name Value Interpretation Reference Range Facility Fibrinogenon 03-28-2023 Fibrinogen 382 mg/dL Normal 200-393 [facility] Comment on above: Order Comment: TELMA PERALTA CLIENT BILL Result Comment: A he matocrit value greater than 55% may lead to inaccurate results in coagulation testing. Patients having hematocrit values >55% require a special collection tube for coagulation studies. Please contact the laboratory at [phone] for redraw instructions. PERFORMED BY: [place] [address] PATHOLOGIST CREW ATTENDANT JANEL SAUCEDO M.D. Performed By: #### F IB-C #### [address] Fibrinogen [Mass/volume] in Platelet poor plasma by Coagulation assayOrdered By: Rodrick Jara on 03-28-2023 Fibrinogen Coag (PPP) [Mass/Vol] 382 mg/dL 200-393 [facility] Comment on above: A hematocrit value g reater than 55% may lead to inaccurate results in coagulation testing. Patients having hematocrit values >55% require a special collection tube for coagulation studies. Please contact the laboratory at [phone] for redraw instructions. Covid-19 PCR ([facility])on SARS-CoV-2 (COVID-19) RNA MEY+probe Ql (Unsp spec) Not detected Normal NOT DETECTED [facility] Comment on above: Result Comment: This test is not yet approved or cleared by the [place] FDA. When there are no FDA-approved or cleared tests available, and other criteria are met, FDA can make tests available under an emergency access mechanism called an Emergency Use Authorization (EUA). The EUA for this test is supported by the Client Technical Professional of Health and Human Service's (HHS's) declaration that circumstances exist to justify the emergency use of in vitro diagnostics for the detection and/or diagnosis of the virus that causes COVID-19. This EUA will remain in effect (meaning this test can be used) for the duration of the COVID-19 declaration justifying emergency of IVDs, unless it is terminated or revoked by FDA (after which the test may no longer be used). When diagnostic testing is negative, the possibility of a false negative should be considered in the context of a patient's recent exposures and the presence of clinical signs and symptoms consistent with SARS-CoV-2. Performed By: #### C VDTB #### [facility] [address] [place] [address] Dr. Daniel Mondragon INFLUENZA A AND B AGon 09-11 INFLUANEGH SEE BELOW Normal [facility] Comment on above: Result Comment: Nega tive for Flu A protein angiten. Infection due to Flu A cannot be ruled out. Flu A angiten in the sample may be below the detection limit of the test. Performed By: #### T SH #### [facility] [address] [place] [address] Dr. Daniel Mondragon INFLUBNEGH SEE BELOW Normal [facility] Comment on above: Result Comment: Nega tive for Flu B protein antigen. Infection due to Flu B cannot be ruled out. Flu B antigen in the sample may be below the detection limit of the test. Performed By: #### T SH #### [facility] [address] [place] [address] Dr. Daniel Mondragon INFLUENZA A AG Negative Normal NEGATIVE SEE COMMENT [facility] Comment on above: Performed By: #### T SH #### [facility] [address] [place] [address] Dr. Daniel Mondragon INFLUENZA B AG Negative Normal NEGATIVE SEE COMMENT [facility] Comment on above: Performed By: #### T SH #### [facility] [address] [place] [address] Dr. Daniel Mondragon SYMPTOMATIC COVID-19 ANTIGEN on 09-11-2022 EUA Statement SEE BELOW Normal [facility] Comment on above: Result Comment: This test has not been FDA cleared or approved, but has been authorized by the FDA under an Emergency Use Authorization (EUA) for use by authorized laboratories certified under CLIA that meet the requirements to perform moderate or high complexity testing. This test has been authorized only for the detection of proteins from SARS-CoV-2, not for any other viruses or pathogens. The emergency use of this test is authorized for the duration of the declaration that circumstances exist justifying the authorization of emergency use of in vitro diagnostic tests for detection and/or diagnosis of Covid-19 under section 564(b)(1) of the Act, 21 U.S.C. 360bbb-3(b)(1), unless the declaration is terminated or authorization is revoked sooner. Performed By: #### C VDAGS #### [facility] [address] [place] [address] Dr. Daniel Mondragon SARS-CoV-2 (COVID-19) RNA MEY+probe Ql (Unsp spec) Negative Normal NEGATIVE [facility] Comment on above: Performed By: #### C VDAGS #### [facility] [address] [place] [address] Dr. Daniel Mondragon HEP B SURFACE ANTIGEN SCREEN on 09-02-2022 HBsAg Screen Negative Normal Negative [facility] Comment on above: Performed By: #### H BSANS #### [facility] [address] [place] [address] Dr. Daniel Mondragon HEPATITIS C VIRUS AB W/ REFL EX QUANTon 09-02-2022 HCV AB Non-Reactive Normal Non Reactive [facility] Comment on above: Performed By: #### T SH #### [facility] [address] [place] [address] Dr. Daniel Mondragon Interpretation: Comment Normal [facility] Comment on above: Result Comment: Not infected with HCV unless early or acute infection is suspected (which may be delayed in an immunocompromised individual), or other evidence exists to indicate HCV infection. Performed By: #### T SH #### [facility] [address] [place] [address] Dr. Daniel Mondragon HIV 1 AND 2 WITH REFLEXon HIV Screen 4th Generation wRfx Non-Reactive Normal Non Reactive [facility] Comment on above: Result Comment: HIV Negative HIV-1/HIV-2 antibodies and HIV-1 p24 antigen were NOT detected. There is no laboratory evidence of HIV infection. Performed By: #### T SH #### [facility] [address] [place] [address] Dr. Daniel Mondragon RPR QUANTon 09-02-2022 Rapid Plasma Reagin, Quant Non-Reactive Normal NonRea<1:1 [facility] Comment on above: Result Comment: [place] Note: This test does not meet current guidelines for screening and diagnosis of syphilis. This test is intended for following treatment response in patients being treated for syphilis infection. To screen for syphilis infection, a reflex cascade that includes both RPR and a treponema-specific assay should be utilized, such as Treponema pallidum (Syphilis) Screening [place] (834435) or Rapid Plasma Reagin (RPR) Test With Reflex to Quantitative RPR and Confirmatory Treponema pallidum Antibodies (978590). Performed By: #### R PRQ #### [facility] [address] [place] [address] Dr. Daniel Mondragon RUBELLA AB IGGon 09-02-2022 Rubella Antibodies, IgG 2.14 index Normal Immune >0.99 [facility] Comment on above: Result Comment: Non- immune <0.90 Equivocal 0.90 - 0.99 Immune >0.99 Performed By: #### T SH #### [facility] [address] [place] [address] Dr. Daniel Mondragon CBC AUTO DIFFon 09-01-2022 BASO # 0.0 103/ul Normal 0.0-0.1 [facility] Comment on above: Performed By: #### C BC #### [facility] [address] [place] [address] Dr. Daniel Mondragon Basophils/100 WBC (Bld) 0.3 % Normal 0.2-2.0 [facility] Comment on above: Performed By: #### C BC #### [facility] [address] [place] [address] Dr. Daniel Mondragon EO # 0.1 103/ul Normal 0.0-0.7 [facility] Comment on above: Performed By: #### C BC #### [facility] [address] [place] [address] Dr. Daniel Mondragon Eosinophils/100 WBC (Bld) 0.7 % Critically low 0.9-7.0 [facility] Comment on above: Performed By: #### C BC #### [facility] [address] [place] [address] Dr. Daniel Mondragon Erythrocyte distribution width (RBC) [Ratio] 14.4 % Normal 11.0-15.0 [facility] Comment on above: Performed By: #### C BC #### [facility] [address] [place] [address] Dr. Daniel Mondragon Hematocrit (Bld) [Volume fraction] 38.9 % Normal 36.0-48.0 [facility] Comment on above: Performed By: #### C BC #### [facility] [address] [place] [address] Dr. Daniel Mondragon Hemoglobin (Bld) [Mass/Vol] 12.7 g/dL Normal 12.0-16.0 [facility] Comment on above: Performed By: #### C BC #### [facility] [address] [place] [address] Dr. Daniel Mondragon IG # 0.05 10e3/ul Critically high 0.00-0.03 [facility] Comment on above: Performed By: #### C BC #### [facility] [address] [place] [address] Dr. Daniel Mondragon IG % 0.3 % Normal 0.0-0.5 [facility] Comment on above: Performed By: #### C BC #### [facility] [address] [place] [address] Dr. Daniel Mondragon LYMPH # 4.0 103/ul Critically high 1.2-3.8 [facility] Comment on above: Performed By: #### C BC #### [facility] [address] [place] [address] Dr. Daniel Mondragon Lymphocytes/100 WBC (Bld) 27.2 % Normal 20.5-60.0 [facility] Comment on above: Performed By: #### C BC #### [facility] [address] [place] [address] Dr. Daniel Mondragon MANUAL DIFF REQ NO Normal [facility] Comment on above: Performed By: #### C BC #### [facility] [address] [place] [address] Dr. Daniel Mondragon MCH (RBC) [Entitic mass] 27.4 pg Normal 26.7-34.0 [facility] Comment on above: Performed By: #### C BC #### [facility] [address] [address] [address] Daniel Mondragon MCHC (RBC) [Mass/Vol] 32.6 g/dL Normal 29.9-35.2 [facility] Comment on above: Performed By: #### C BC #### [facility] [address] [place] [address] Dr. Daniel Mondragon MCV (RBC) [Entitic vol] 83.8 fL Normal 81.0-99.0 [facility] Comment on above: Performed By: #### C BC #### [facility] [address] [place] [address] Dr. Daniel Mondragon MONO # 0.6 103/ul Normal 0.3-0.8 [facility] Comment on above: Performed By: #### C BC #### [facility] [address] [place] [address] Dr. Daniel Mondragon Monocytes/100 WBC (Bld) 4.0 % Normal 1.7-12.0 [facility] Comment on above: Performed By: #### C BC #### [facility] [address] [place] [address] Dr. Daniel Mondragon NEUT # 10.0 103/ul Critically high 1.4-6.5 [facility] Comment on above: Performed By: #### C BC #### [facility] [address] [place] [address] Dr. Daniel Mondragon Neutrophils/100 WBC (Bld) 67.5 % Normal 43.0-75.0 [facility] Comment on above: Performed By: #### C BC #### [facility] [address] [place] [address] Dr. Daniel Mondragon Platelet mean volume (Bld) [Entitic vol] 10.4 fL Normal 9.5-13.5 [facility] Comment on above: Performed By: #### C BC #### [facility] [address] [place] [address] Dr. Daniel Mondragon PLT 285 103/ul Normal 150-450 [facility] Comment on above: Performed By: #### C BC #### [facility] [address] [place] [address] Dr. Daniel Mondragon RBC 4.64 106/ul Normal 4.20-5.40 [facility] Comment on above: Performed By: #### C BC #### [facility] [address] [place] [address] Dr. Daniel Mondragon WBC 14.8 103/ul Critically high 4.0-11.0 [facility] Comment on above: Performed By: #### C BC #### [facility] [address] [place] [address] Dr. Daniel Mondragon CULTURE URINEon 09-01-2022 CULTURE URINE Culture Observations : NO GROWTH. Normal [facility] Comment on above: Performed By: #### T SH #### [facility] [address] [place] [address] Dr. Daniel Mondragon GLYCOHEMOGLOBIN A1Con 2022 ADA RECOMMENDATION SEE BELOW Normal [facility] Comment on above: Result Comment: ADA RECOMMENDED LIMIT 4.0 - 6.0 ADA THERAPEUTIC TARGET < 7.0 ACTION SUGGESTED > 7.0 Performed By: #### T SH #### [facility] [address] [place] [address] Dr. Daniel Mondrgaon Glucose [Mass/Vol] 137 mg/dL Normal [facility] Comment on above: Performed By: #### T SH #### [facility] [address] [place] [address] Dr. Daniel Mondragon HbA1c (Bld) [Mass fraction] 6.4 % Critically high 4.5-6.2 [facility] Comment on above: Performed By: #### T SH #### [facility] [address] [place] [address] Dr. Daniel Mondragon TSHon 09-01-2022 TSH 0.879 uIU/mL Normal 0.358-3.740 [facility] Comment on above: Performed By: #### T SH #### [facility] [address] [place], [place] [address] Dr. Daniel Mondragon TYPE AND SCREENon 09-01-2022 TYPE AND SCREEN Negative Normal [facility] Comment on above: Performed By: #### T #### [facility] [address] [place], [place] [address] Dr. Daniel Mondragon US PREG TVon 08-18-2022 US PREG TV EXAMINATION: US PREG TV HISTORY: Irregular periods ; evaluate for viability COMPARISON: No relevant comparison available. FINDINGS: GESTATIONAL SAC: Present and normal appearing. YOLK SAC: Present and normal appearing. POLE: Present and normal appearing. CARDIAC: Present. UTERUS: Normal size and appearance. OVARIES: Right: Corpus lutein cyst. Left: Not seen. CERVIX: 3.2 cm in length and closed. CUL-DE-SAC: Normal. OTHER: None. AGE BY LMP: 9 weeks 4 days SOO BY LMP: 03/19/2023 AGE BY US CRL: 6 weeks 1 day SOO BY US CRL: 04/12/2023 IMPRESSION: 1. Single live intrauterine . Electronically authenticated by: RUDDY SANCHEZ Date: 2022-08-18 16:19 Normal [facility] SARS-CoV-2 (COVID-19) RNA MEY+probe Ql (Unsp spec) Not detected Normal NOT DETECTED [facility] Comment on above: Result Comment: When diagnostic testing is negative, the possibility of a false negative should be considered in the context of a patient's recent exposures and the presence of clinical signs and symptoms consistent with SARS-CoV-2. This test is not yet approved or cleared by the [place] FDA. When there are no FDA-approved or cleared tests available, and other criteria are met, FDA can make tests available under an emergency access mechanism called an Emergency Use Authorization (EUA). The EUA for this test is supported by the [place] of Health and Human Service's declaration that circumstances exist to justify the emergency use of in vitro diagnostics for the detection and/or diagnosis of the virus that causes COVID-19. This EUA will remain in effect for the duration of the COVID-19 declaration justifying emergency of IVDs, unless it is terminated or revoked by the FDA (after which the test may no longer be used). Performed By: #### C VDTBH #### [facility] [address] [place] [address] Dr. Daniel Mondragon INFLUENZA A AND B AGon 06-13 [facility] SEE BELOW Normal [facility] Comment on above: Result Comment: Nega tive for Flu A protein angiten. Infection due to Flu A cannot be ruled out. Flu A angiten in the sample may be below the detection limit of the test. Performed By: #### I NFLUAB #### [facility] [address] [place] [address] Dr. Daniel Mondragon INFLUBNEG SEE BELOW Normal [facility] Comment on above: Result Comment: Nega tive for Flu B protein antigen. Infection due to Flu B cannot be ruled out. Flu B antigen in the sample may be below the detection limit of the test. Performed By: #### I NFLUAB #### [facility] [address] [place] [address] Dr. Daniel Mondragon INFLUENZA A AG Negative Normal NEGATIVE SEE COMMENT [facility] Comment on above: Performed By: #### I NFLUAB #### [facility] [address] [place] [address] Dr. Daniel Mondragon INFLUENZA B AG Negative Normal NEGATIVE SEE COMMENT [facility] Comment on above: Performed By: #### I NFLUAB #### [facility] [address] [place] [address] Dr. Daniel Mondragon Covid-19 PCR ([facility])on 03-11 SARS-CoV-2 (COVID-19) RNA MEY+probe Ql (Unsp spec) Not detected Normal NOT DETECTED [facility] Comment on above: Result Comment: When diagnostic testing is negative, the possibility of a false negative should be considered in the context of a patient's recent exposures and the presence of clinical signs and symptoms consistent with SARS-CoV-2. This test is not yet approved or cleared by the [place] FDA. When there are no FDA-approved or cleared tests available, and other criteria are met, FDA can make tests available under an emergency access mechanism called an Emergency Use Authorization (EUA). The EUA for this test is supported by the [place] of Health and Human Service's declaration that circumstances exist to justify the emergency use of in vitro diagnostics for the detection and/or diagnosis of the virus that causes COVID-19. This EUA will remain in effect for the duration of the COVID-19 declaration justifying emergency of IVDs, unless it is terminated or revoked by the FDA (after which the test may no longer be used). Performed By: #### C VDTB #### [facility] [address] [place] [address] Dr. Daniel Mondragon Covid-19 PCR ([facility])on SARS-CoV-2 (COVID-19) RNA MEY+probe Ql (Unsp spec) Not detected Normal NOT DETECTED [facility] Comment on above: Result Comment: This test is not yet approved or cleared by the [place] FDA. When there are no FDA-approved or cleared tests available, and other criteria are met, FDA can make tests available under an emergency access mechanism called an Emergency Use Authorization (EUA). The EUA for this test is supported by the Client Technical Professional of Health and Human Service's (HHS's) declaration that circumstances exist to justify the emergency use of in vitro diagnostics for the detection and/or diagnosis of the virus that causes COVID-19. This EUA will remain in effect (meaning this test can be used) for the duration of the COVID-19 declaration justifying emergency of IVDs, unless it is terminated or revoked by FDA (after which the test may no longer be used). When diagnostic testing is negative, the possibility of a false negative should be considered in the context of a patient's recent exposures and the presence of clinical signs and symptoms consistent with SARS-CoV-2. Performed By: #### C VDTB #### [facility] [address] [place], [place] [address] Dr. Daniel Mondragon CNCOon 08-13-2018 CNCO Letter Text Normal [facility] CBC and Differentialon 04-03 Abs Baso 0.04 k/uL Normal 0.00-0.10 [facility] Abs [place] 0.45 k/uL Normal 0.00-0.86 [facility] Abs Neut 6.61 k/uL Normal 1.45-7.50 [facility] Basophils/100 WBC (Bld) 0.4 % Normal [facility] Eosinophils #/vol (Bld) 0.24 10*3/uL Normal 0.00-0.45 [facility] Eosinophils/100 WBC (Bld) 2.3 % Normal [facility] Erythrocyte distribution width Ratio (RBC) 12.9 % Normal 11.5-15.0 [facility] Hematocrit Volume Fraction (Bld) 43.0 % Normal 36.0-46.0 [facility] Hemoglobin mass conc (Bld) 14.4 g/dL Normal 11.5-15.5 [facility] Lymphocytes #/vol (Bld) 3.05 10*3/uL Normal 1.00-4.00 [facility] Lymphocytes/100 WBC (Bld) 29.4 % Normal [facility] MCH Entitic mass (RBC) 30.4 pG Normal 26.0-34.0 [facility] MCHC mass conc (RBC) 33.5 g/dL Normal 30.5-36.0 [facility] MCV Entitic volume (RBC) 90.9 fL Normal 80.0-100.0 [facility] Monocytes/100 WBC (Bld) 4.3 % Normal [facility] Neutrophils/100 WBC (Bld) 63.6 % Normal [facility] Platelet mean volume Entitic volume (Bld) 10.5 fL Normal 9.0-12.7 [facility] Platelets #/vol (Bld) 253 10*3/uL Normal 150-400 [facility] RBC #/vol (Bld) 4.73 10*6/uL Normal 3.90-5.20 [facility] WBC #/vol (Bld) 10.39 10*3/uL Normal 3.70-11.00 [facility] CNOVon 04-03-2018 CNOV Office Visit (RADTSA ) RESTREPOCAITLYN Delacruz ([id number]) 1990 F Date Time Provider Department 04/03/18 1:30 PM LAB/PORT RADT DIONE MARTIN During your visit today, we recorded the following information about you: Ashley Johnson LPN, LANE 04/03/2018 4:35 PM Signed Caitlyn Kaye presents in office today for: Lab Draw during Office Visit . Ordering Provider: Norma Evangelista M.D. Test (s) ordered: CBC T4 Total 11934 TSH Sedrate Thyroglobulin Ab and QT LDH Method for obtaining blood: Phlebotomy was performed, accessing left antecubital vein. Needle removed intact. Dressing secured. Patient denies discomfort, dizziness, light-headedness or weakness and left the department without assist. Ashley Johnson LPN Referring Provider: JULIENNE HORTA [[id number]] Allergies As of Date: 04/03/2018 Noted Allergy Reaction SEPTRA (SULFAMETHOXAZOLE-TRIM ETHO*07/19/2016 4 - Hives Date Reviewed: 04/03/2018 Reviewed by: Ashley Johnson RN - Fully Assessed Reason for Visit: Phlebotomy [1172] Primary Visit Diagnosis:History of thyroid cancer [Z85.850] Other Visit Diagnosis:Body aches [R52] Prescriptions as of 04/03/2018 Sig: CYTOMEL ORAL Take 10 mcg by mouth. LEVOTHYROXINE 200 MCG TABLET TRI-SPRINTEC (28) 0.18 MG(7)/* Problem List As Of Date 04/03/2018 Noted Resolved Thyroid cancer (HCC) [C73] INVALID FOR* History of thyroid cancer [Z85.850] INVALID FOR* Visit Notes: >> Ashley Johnson RN SunApr 03, 2018 4:33 PM Status: Signed Caitlyn Kaye presents in office today for: Lab Draw during Office Visit . Ordering Provider: Norma Evangelista M.D. Test (s) ordered: CBC T4 Total 08486 TSH Sedrate Thyroglobulin Ab and QT LDH Method for obtaining blood: Phlebotomy was performed, accessing left antecubital vein. Needle removed intact. Dressing secured. Patient denies discomfort, dizziness, light-headedness or weakness and left the department without assist. Ashley TAVO Johnson Encounter Status:Closed by ASHLEY JOHNSON on 04/03/18 Normal [facility] Office Visit (RADTSA ) CAITLYN RESTREPO ([id number]) 1990 F Date Time Provider Department 04/03/18 11:45 AM Ronnell EVANGELISTA During your visit today, we recorded the following information about you: Temperature Pulse Respiration Blood pressure 98.1 degrees 83/minute 16/minute 137/86 Weight 86.6 kg G Norma Evangelista MD 04/08/2018 10:57 AM Signed Radiation Oncology - follow-up Note PATIENT NAME: Caitlyn Restrepo PATIENT DIAGNOSIS: 26 year old female with thyroid cancer, papillary carcinoma, stage pT2 N0. HPI: Patient underwent I-131 ablative therapy on 08/09/16, I-131 dose 75 mCi. Overall doing well. She is having some new joint pain both upper and lower extremity. Taking nonsteroidal medicines without significant improvement. Still active and working. Pain gets better as the day goes on. She does give a history of her mom with rheumatoid arthritis. laboratory:Results for CAITLYN RESTREPO ( ) as of 04/08/2018 10:46 Ref. Range 07/19/2016 15:32 09/21/2017 11:26 04/03/2018 12:03 04/03/2018 12:18 LD Latest Ref Range: 135 - 214 U/L 205 Hematocrit Latest Ref Range: 36.0 - 46.0 % 43.0 Thyroglobulin Latest Ref Range: 1.6 - 59.9 ng/mL 2.7 2.4 0.9 (L) TG Antibody Screen Latest Ref Range: <14.4 IU/mL 1.7 1.8 1.6 T4 Latest Ref Range: 5.5 - 10.2 ug/dL 14.2 (H) TSH Latest Ref Range: 0.400 - 5.500 uU/mL 2.510 Thyroglobulin Ab Latest Ref Range: <14.4 IU/mL 1.8 1.6 WBC Latest Ref Range: 3.70 - 11.00 k/uL 10.39 RBC Latest Ref Range: 3.90 - 5.20 m/uL 4.73 Hemoglobin Latest Ref Range: 11.5 - 15.5 g/dL 14.4 Platelet Count Latest Ref Range: 150 - 400 k/uL 253 MCV Latest Ref Range: 80.0 - 100.0 fL 90.9 MCH Latest Ref Range: 26.0 - 34.0 pG 30.4 MCHC Latest Ref Range: 30.5 - 36.0 g/dL 33.5 MPV Latest Ref Range: 9.0 - 12.7 fL 10.5 RDW-CV Latest Ref Range: 11.5 - 15.0 % 12.9 Neut% Latest Units: % 63.6 Abs Neut (ANC) Latest Ref Range: 1.45 - 7.50 k/uL 6.61 Lymph% Latest Units: % 29.4 Abs Lymph Latest Ref Range: 1.00 - 4.00 k/uL 3.05 [place]% Latest Units: % 4.3 Abs [place] Latest Ref Range: 0.00 - 0.86 k/uL 0.45 Eosin% Latest Units: % 2.3 Abs Eosin Latest Ref Range: 0.00 - 0.45 k/uL 0.24 Baso% Latest Units: % 0.4 Abs Baso Latest Ref Range: 0.00 - 0.10 k/uL 0.04 WSR Latest Ref Range: 0 - 20 mm/hr 8 Thyroglobulin 08/09/16 5.3, thyroglobulin antibody < 1.0. 02/22/17 4.8 3 ALLERGIES: ALLERGIES Allergen Reactions - Septra [Sulfamethox* Hives MEDICATIONS: liothyronine sodium (CYTOMEL ORAL) Take 10 mcg by mouth. levothyroxine (SYNTHROID) 200 mcg tablet TRI-SPRINTEC 0.18/0.215/0.25 mg-35 mcg (28) tab PAST MEDICAL HISTORY Diagnosis Date - Thyroid cancer (HCC) Prior radiation therapy, collagen vascular disease, or inflammatory bowel disease: No status: Patient states there is no possibility she is at this time. Educated on risks of during treatment. PAST SURGICAL HISTORY Procedure Laterality Date - REPAIR OF FOOT TENDON - THYROIDECTOMY Bilateral 2017 - TONSILLECTOMY HX FAMILY HISTORY Problem Relation Age of Onset - other (Lymphoma) Maternal Aunt SOCIAL HISTORY: Social History Substance Use Topics - Smoking status: Never Smoker - Smokeless tobacco: Never Used - Alcohol use Not on file COMPLETE REVIEW OF SYSTEMS: GENERAL: Negative for weight loss, fevers, chills, or night sweats. HEENT: Negative for sudden vision or hearing changes. NECK: Negative for masses in the neck. RESPIRATORY: Negative for cough or shortness of breath. CARDIAC: Negative for chest pain, palpitations, murmurs, or syncopal episodes. GI: Negative for nausea, vomiting, diarrhea, constipation, blood per rectum, or melena. : Negative for dysuria, hematuria, urgency, frequency or incontinence. MUSCULOSKELETAL: Negative for limitations in movement, pain, or swelling. NEURO: Negative for dizziness, headache, weakness or numbness. HEMATOLOGIC: Negative for bleeding or easy bruising. SKIN: Negative for rashes or other skin changes. PHYSICAL EXAM: KPS: 100 General Appearance: Alert and oriented. No acute distress. HEENT: NCAT. Sclera anicteric. PERRL. EOMI. Oral cavity AND oropharnyx: lips and gums normal, oral and pharyngeal mucosa moist, palate elevates normally, tongue mobile and without palpable lesions, tonsils without masses Neck: Normal ROM. No palpable cervical or supraclavicular adenopathy. Well-healed low neck incision Musculoskeletal: No edema. Normal ROM in extremities. No bone or spine tenderness. Skin: No rashes noted Lymphatics: No palpable lymphadenopathy. RADIOLOGY/LABORATORY DATA: see HPI STAGE: T: 2 N: 0 M: X ASSESSMENT: Thyroid cancer, papillary carcinoma, tall cell histology, pT2 N0 MX. PLAN: Overall patient doing well. Her thyroglobulin continues to decline. No significant post I-131 problems. She has had some recent arthralgias likely unrelated to either her history of thyroid cancer and I-131 therapy or her replacement therapy. With history of rheumatoid arthritis I recommend getting her family physician. She is having some issues with getting her TSH down and has been started on Cytomel with some success per Dr. Albright. She continues close follow-up with him as well. Recommend repeat thyroglobulin in 6 months . Signed by: Ronnell Evangelista MD cc: Julienne Horta MD ([facility]) Dr. Albright Referring Provider: Ronnell EVANGELISTA [[id number]] Allergies As of Date: 04/03/2018 Noted Allergy Reaction SEPTRA (SULFAMETHOXAZOLE-TRIM ETHO*07/19/2016 4 - Hives Date Reviewed: 04/03/2018 Reviewed by: Ashley (Tavo) LANE Johnson - Fully Assessed Reason for Visit: Follow Up [171] Primary Visit Diagnosis:History of thyroid cancer [Z85.850] Other Visit Diagnosis:Body aches [R52] Order(s):THYROGLOBULIN BLD [SQTG] Order #: [id number] FUTURE THYROGLOBULIN AB [SQTGAB] Order #: [id number] FUTURE SED RATE WESTERGREN [SQWSR] Order #: [id number] FUTURE CBC + DIFF [SQCBCDIF] Order #: [id number] FUTURE LD LACTATE DEHYDRO [SQLD6] Order #: [id number] FUTURE T4/THYROXINE BLOOD [SQT4] Order #: [id number] FUTURE TSH BLD [SQTSH] Order #: [id number] FUTURE Prescriptions as of 04/03/2018 Sig: CYTOMEL ORAL Take 10 mcg by mouth. LEVOTHYROXINE 200 MCG TABLET TRI-SPRINTEC (28) 0.18 MG(7)/* Problem List As Of Date 04/03/2018 Noted Resolved Thyroid cancer (HCC) [C73] INVALID FOR* History of thyroid cancer [Z85.850] INVALID FOR* Disposition: Return in about 6 months (around 10/02/2018). Follow-up and Disposition History Recorded Encounter Status:Closed by Ronnell EVANGELISTA MD on 04/08/18 Normal [facility] LDon 04-03-2018 LD 205 U/L Normal 135-214 [facility] PROGRESSon 04-03-2018 Protein mass conc HNO ID: [id number] Author: Ronnell Evangelista Service: (none) Author Type: Physician Type: Progress Notes Filed: 04/08/2018 10:57 AM Note Text: Radiation Oncology - follow-up Note PATIENT NAME: Caitlyn Restrepo PATIENT DIAGNOSIS: 26 year old female with thyroid cancer, papillary carcinoma, stage pT2 N0. HPI: Patient underwent I-131 ablative therapy on 08/09/16, I-131 dose 75 mCi. Overall doing well. She is having some new joint pain both upper and lower extremity. Taking nonsteroidal medicines without significant improvement. Still active and working. Pain gets better as the day goes on. She does give a history of her mom with rheumatoid arthritis. laboratory:Results for CAITLYN RESTREPO ( ) as of 04/08/2018 10:46 Ref. Range 07/19/2016 15:32 09/21/2017 11:26 04/03/2018 12:03 04/03/2018 12:18 LD Latest Ref Range: 135 - 214 U/L 205 Hematocrit Latest Ref Range: 36.0 - 46.0 % 43.0 Thyroglobulin Latest Ref Range: 1.6 - 59.9 ng/mL 2.7 2.4 0.9 (L) TG Antibody Screen Latest Ref Range: <14.4 IU/mL 1.7 1.8 1.6 T4 Latest Ref Range: 5.5 - 10.2 ug/dL 14.2 (H) TSH Latest Ref Range: 0.400 - 5.500 uU/mL 2.510 Thyroglobulin Ab Latest Ref Range: <14.4 IU/mL 1.8 1.6 WBC Latest Ref Range: 3.70 - 11.00 k/uL 10.39 RBC Latest Ref Range: 3.90 - 5.20 m/uL 4.73 Hemoglobin Latest Ref Range: 11.5 - 15.5 g/dL 14.4 Platelet Count Latest Ref Range: 150 - 400 k/uL 253 MCV Latest Ref Range: 80.0 - 100.0 fL 90.9 MCH Latest Ref Range: 26.0 - 34.0 pG 30.4 MCHC Latest Ref Range: 30.5 - 36.0 g/dL 33.5 MPV Latest Ref Range: 9.0 - 12.7 fL 10.5 RDW-CV Latest Ref Range: 11.5 - 15.0 % 12.9 Neut% Latest Units: % 63.6 Abs Neut (ANC) Latest Ref Range: 1.45 - 7.50 k/uL 6.61 Lymph% Latest Units: % 29.4 Abs Lymph Latest Ref Range: 1.00 - 4.00 k/uL 3.05 [place]% Latest Units: % 4.3 Abs [place] Latest Ref Range: 0.00 - 0.86 k/uL 0.45 Eosin% Latest Units: % 2.3 Abs Eosin Latest Ref Range: 0.00 - 0.45 k/uL 0.24 Baso% Latest Units: % 0.4 Abs Baso Latest Ref Range: 0.00 - 0.10 k/uL 0.04 WSR Latest Ref Range: 0 - 20 mm/hr 8 Thyroglobulin 3 5.3, thyroglobulin antibody < 1.0. 02/22/17 4.8 3 ALLERGIES: ALLERGIES Allergen Reactions - Septra [Sulfamethox* Hives MEDICATIONS: liothyronine sodium (CYTOMEL ORAL) Take 10 mcg by mouth. levothyroxine (SYNTHROID) 200 mcg tablet TRI-SPRINTEC 0.18/0.215/0.25 mg-35 mcg (28) tab PAST MEDICAL HISTORY Diagnosis Date - Thyroid cancer (HCC) Prior radiation therapy, collagen vascular disease, or inflammatory bowel disease: No status: Patient states there is no possibility she is at this time. Educated on risks of during treatment. PAST SURGICAL HISTORY Procedure Laterality Date - REPAIR OF FOOT TENDON - THYROIDECTOMY Bilateral 2017 - TONSILLECTOMY HX FAMILY HISTORY Problem Relation Age of Onset - other (Lymphoma) Maternal Aunt SOCIAL HISTORY: Social History Substance Use Topics - Smoking status: Never Smoker - Smokeless tobacco: Never Used - Alcohol use Not on file COMPLETE REVIEW OF SYSTEMS: GENERAL: Negative for weight loss, fevers, chills, or night sweats. HEENT: Negative for sudden vision or hearing changes. NECK: Negative for masses in the neck. RESPIRATORY: Negative for cough or shortness of breath. CARDIAC: Negative for chest pain, palpitations, murmurs, or syncopal episodes. GI: Negative for nausea, vomiting, diarrhea, constipation, blood per rectum, or melena. : Negative for dysuria, hematuria, urgency, frequency or incontinence. MUSCULOSKELETAL: Negative for limitations in movement, pain, or swelling. NEURO: Negative for dizziness, headache, weakness or numbness. HEMATOLOGIC: Negative for bleeding or easy bruising. SKIN: Negative for rashes or other skin changes. PHYSICAL EXAM: KPS: 100 General Appearance: Alert and oriented. No acute distress. HEENT: NCAT. Sclera anicteric. PERRL. EOMI. Oral cavity AND oropharnyx: lips and gums normal, oral and pharyngeal mucosa moist, palate elevates normally, tongue mobile and without palpable lesions, tonsils without masses Neck: Normal ROM. No palpable cervical or supraclavicular adenopathy. Well-healed low neck incision Musculoskeletal: No edema. Normal ROM in extremities. No bone or spine tenderness. Skin: No rashes noted Lymphatics: No palpable lymphadenopathy. RADIOLOGY/LABORATORY DATA: see HPI STAGE: T: 2 N: 0 M: X ASSESSMENT: Thyroid cancer, papillary carcinoma, tall cell histology, pT2 N0 MX. PLAN: Overall patient doing well. Her thyroglobulin continues to decline. No significant post I-131 problems. She has had some recent arthralgias likely unrelated to either her history of thyroid cancer and I-131 therapy or her replacement therapy. With history of rheumatoid arthritis I recommend getting her family physician. She is having some issues with getting her TSH down and has been started on Cytomel with some success per Dr. Albright. She continues close follow-up with him as well. Recommend repeat thyroglobulin in 6 months . Signed by: Ronnell Evangelista MD cc: Julienne Horta MD (Dr) Dr. Albright Normal [facility] Sed Rate Westergrenon 2017 Sed Rate Westergren 8 mm/hr Normal 0-20 [facility] Comment on above: Performed By: #### W SR, T4, TSH ####[facility] [address] [place], [place] [phone] T4on 04-03-2018 T4 14.2 ug/dL High 5.5-10.2 [facility] Comment on above: Performed By: #### W SR, T4, TSH ####[facility] [address] [place], [place] [phone] TSHon 04-03-2018 Thyrotropin Qn 2.510 uU/mL Normal 0.400-5.500 [facility] Comment on above: Result Comment: If t he patient is , TSH reference range varies by gestational period: First Trimester 0.100-2.500 uU/mL Second Trimester 0.200-3.000 uU/mL Third Trimester 0.300-3.000 uU/mL References: 1. Ashby Citlali M, Genaro EK, et al. Management of Thyroid Dysfunction during and : An Endocrine Society Clinical Practice Guideline. J Clin Endocrinol Metab, 2012:97:5760-2725. 2. Jc PABLO. Overview of thyroid disease in . UpToDate. 2016. Accessed on November 26, 2015. Performed By: #### W SR, T4, TSH ####[facility] [place], [place] [phone] Thyroglobulinon 04-03-2018 TG Antibody Screen 1.6 IU/mL Normal <14.4 [facility] Comment on above: Performed By: #### T SOPHIA, TG ####[place] [id number] [place], [place] [phone] Thyroglobulin 0.9 ng/mL Low 1.6-59.9 [facility] Comment on above: Result Comment: Test analyzed by the Siemens Immulite method Performed By: #### T SOPHIA, TG ####[facility] [place], [place] [phone] Thyroglobulin Abon 8 Thyroglobulin Ab Qn 1.6 [IU]/mL Normal <14.4 [facility] Comment on above: Performed By: #### T SOPHIA, TG ####[facility] [place], [place] [phone] BMPon 10-29-2017 BUN/Creatinine Ratio 16 No Units Normal - [facility] Comment on above: Performed By: #### 2 [id number], [id number], [id number] ####[facility] [address] [place] [address] Creatinine 0.7 mg/dL Normal 0.5-1.3 [facility] Comment on above: Performed By: #### 2 [id number], [id number], [id number] ####[facility] [address] [place] [address] Urea nitrogen 11 mg/dL Normal 5-21 [facility] Comment on above: Performed By: #### 2 [id number], [id number], [id number] ####[facility] [address] [place] [address] Anion gap 14 mmol/L Normal 6-16 [facility] Comment on above: Performed By: #### 2 508776, [id number], [id number] ####[facility] [address] [place] [address] Calcium 9.5 mg/dL Normal 8.9-11.1 [facility] Comment on above: Performed By: #### 2 983034, [id number], [id number] ####[facility] [address] [place] [address] Chloride 102 mmol/L Normal 101-111 [facility] Comment on above: Performed By: #### 2 399091, [id number], [id number] ####[facility] [address] [place] [address] CO2 25 mmol/L Normal 21-31 [facility] Comment on above: Performed By: #### 2 023925, [id number], [id number] ####[facility] [address] [place] [address] Glucose mass conc 134 mg/dL Normal 55-199 [facility] Comment on above: Result Comment: If t his glucose result represents a fasting glucose, interpretation should refer to the following reference range: 55-99 mg/dL Performed By: #### 2 [id number], [id number], [id number] ####[facility] [address] [place] [address] Potassium molar conc 3.8 mmol/L Normal 3.5-5.3 [facility] Comment on above: Performed By: #### 2 212973, [id number], [id number] ####[facility] [address] [place] [address] Sodium 137 mmol/L Normal 135-145 [facility] Comment on above: Performed By: #### 2 302416, [id number], [id number] ####[facility] [address] [place] [address] Hep Func Panelon 10-29-2017 BILIRUBIN.NON-GLUCURO NIDATED:MSCNC:PT:SER/ PLAS:QN: UTC Abnormal 0.1-0.9 [facility] Comment on above: Result Comment: Resu lt verified by Discern Rule. Performed result UTC (Unable to Calculate) was sent as an Alpha code due the inability to calculate a valid numeric value. Performed By: #### 2 [id number], [id number], [id number] ####[facility] [address] [place] [address] Albumin 1.3 g/dL Normal 1.1-2.2 [facility] Comment on above: Performed By: #### 2 203930, [id number], [id number] ####[facility] [address] [place] [address] Albumin 4.4 g/dL Normal 3.3-5.0 [facility] Comment on above: Performed By: #### 2 357010, [id number], [id number] ####[facility] [address] [place] [address] Alkaline phosphatase (ALP) 55 Int._Unit/L Normal 21-98 [facility] Comment on above: Performed By: #### 2 793568, [id number], [id number] ####[facility] [address] [place] [address] ALT Without P-5'-P enzyme act/vol 11 Int._Unit/L Normal 6-46 [facility] Comment on above: Performed By: #### 2 822400, [id number], [id number] ####[facility] [address] [place] [address] Aspartate aminotransferase (AST) 19 Int._Unit/L Normal 5-43 [facility] Comment on above: Performed By: #### 2 805002, [id number], [id number] ####[facility] [address] [place] [address] Bilirubin (direct) mg/dL Normal 0.1-0.4 [facility] Comment on above: Performed By: #### 2 558140, [id number], 2150682 ####[facility] [address] [place] [address] Bilirubin (total) 0.2 mg/dL Normal 0.0-1.1 [facility] Comment on above: Performed By: #### 2 472550, [id number], [id number] ####[facility] [address] [place] [address] Globulin 3.5 g/dL Normal 1.4-4.0 [facility] Comment on above: Performed By: #### 2 228535, [id number], 0166751 ####[facility] [address] [place] [address] Protein 7.9 g/dL High 6.0-7.8 [facility] Comment on above: Performed By: #### 2 125590, [id number], [id number] ####[facility] [address] [place] [address] eGFRon 10-29-2017 eGFR (black) mL/min/{1.73_m2} Normal >=59 [facility] Comment on above: Order Comment: Order added by Discern Expert. Result Comment: eGFR is race adjusted. AA=. Performed By: #### 2 868889, [id number], [id number] ####[facility] [address] [place] [address] eGFR (non-black) mL/min/{1.73_m2} Normal >=59 [facility] Comment on above: Order Comment: Order added by Discern Expert. Result Comment: Hard Tile Setter julian kidney disease could be indicated at eGFR's of less than 60 mL/min/1.73m2. Kidney failure is indicated at less than 15 mL/min/1.73m2. Performed By: #### 2 [id number], [id number], [id number] ####[facility] [address] [place] [address] CNOVon 10-03-2017 CNOV Office Visit (RADTSA ) CAITLYN RESTREPO ([id number]) 1990 F Date Time Provider Department 10/03/17 11:30 AM Ronnell EVANGELISTA During your visit today, we recorded the following information about you: Blood pressure Weight 118/70 91 kg G Norma Evangelista MD 10/05/2017 12:56 PM Signed Radiation Oncology - follow-up Note PATIENT NAME: Caitlyn Restrepo PATIENT DIAGNOSIS: 26 year old female with thyroid cancer, papillary carcinoma, stage pT2 N0. HPI: Patient underwent I-131 ablative therapy on 08/09/16, I-131 dose 75 mCi. Overall doing well. She has been started on Cytomel and feels somewhat better after this. No other new problems. laboratory:Results for CAITLYN RESTREPO ( ) as of 10/03/2017 11:39 Ref. Range 07/19/2016 15:32 09/21/2017 11:26 Thyroglobulin Latest Ref Range: 1.6 - 59.9 ng/mL 2.7 2.4 TG Antibody Screen Latest Ref Range: ANDlt;14.4 IU/mL 1.7 1.8 Thyroglobulin Ab Latest Ref Range: ANDlt;14.4 IU/mL 1.8 Thyroglobulin 08/09/16 5.3, thyroglobulin antibody ANDlt; 1.0. 02/22/17 4.8 3 ALLERGIES: ALLERGIES Allergen Reactions - Septra [Sulfamethox* Hives MEDICATIONS: liothyronine sodium (CYTOMEL ORAL) Take 10 mcg by mouth. levothyroxine (SYNTHROID) 200 mcg tablet TRI-SPRINTEC 0.18/0.215/0.25 mg-35 mcg (28) tab PAST MEDICAL HISTORY Diagnosis Date - Thyroid cancer (HCC) Prior radiation therapy, collagen vascular disease, or inflammatory bowel disease: No status: Patient states there is no possibility she is at this time. Educated on risks of during treatment. PAST SURGICAL HISTORY Procedure Laterality Date - REPAIR OF FOOT TENDON - THYROIDECTOMY Bilateral 2017 - TONSILLECTOMY HX FAMILY HISTORY Problem Relation Age of Onset - Lymphoma [OTHER] Maternal Aunt SOCIAL HISTORY: Social History Substance Use Topics - Smoking status: Never Smoker - Smokeless tobacco: Not on file - Alcohol use Not on file COMPLETE REVIEW OF SYSTEMS: GENERAL: Negative for weight loss, fevers, chills, or night sweats. HEENT: Negative for sudden vision or hearing changes. NECK: Negative for masses in the neck. RESPIRATORY: Negative for cough or shortness of breath. CARDIAC: Negative for chest pain, palpitations, murmurs, or syncopal episodes. GI: Negative for nausea, vomiting, diarrhea, constipation, blood per rectum, or melena. : Negative for dysuria, hematuria, urgency, frequency or incontinence. MUSCULOSKELETAL: Negative for limitations in movement, pain, or swelling. NEURO: Negative for dizziness, headache, weakness or numbness. HEMATOLOGIC: Negative for bleeding or easy bruising. SKIN: Negative for rashes or other skin changes. PHYSICAL EXAM: KPS: 100 General Appearance: Alert and oriented. No acute distress. HEENT: NCAT. Sclera anicteric. PERRL. EOMI. Oral cavity ANDamp; oropharnyx: lips and gums normal, oral and pharyngeal mucosa moist, palate elevates normally, tongue mobile and without palpable lesions, tonsils without masses Neck: Normal ROM. No palpable cervical or supraclavicular adenopathy. Well-healed low neck incision Musculoskeletal: No edema. Normal ROM in extremities. No bone or spine tenderness. Skin: No rashes noted Lymphatics: No palpable lymphadenopathy. RADIOLOGY/LABORATORY DATA: see HPI STAGE: T: 2 N: 0 M: X ASSESSMENT: Thyroid cancer, papillary carcinoma, tall cell histology, pT2 N0 MX. PLAN: Overall patient doing well. She does have detectable thyroglobulin after stimulation with Thyrogen however this continues to decline. Recommend repeat spot value in 6 months. She is having some issues with getting her TSH down and has been started on Cytomel with some success per Dr. Albright. She continues close follow-up with him as well. Recommend repeat thyroglobulin in 6 months and consider neck ultrasound should this value not continue to decrease. Signed by: Ronnell Evangelista MD cc: Julienne Horta MD ([facility]) Dr. Albright Referring Provider: Ronnell EVANGELISTA [[id number]] Allergies As of Date: 10/03/2017 Noted Allergy Reaction SEPTRA (SULFAMETHOXAZOLE-TRIM ETHO*07/19/2016 4 - Hives Date Reviewed: 10/03/2017 Reviewed by: Houston (Rn) LANE Wong - Fully Assessed Reason for Visit: Thyroid Cancer [879] Primary Visit Diagnosis:Thyroid cancer (HCC) [C73] Order(s):THYROGLOBULIN BLD [SQTG] Order #: [id number] FUTURE THYROGLOBULIN AB [SQTGAB] Order #: [id number] FUTURE Prescriptions as of 10/03/2017 Sig: CYTOMEL ORAL Take 10 mcg by mouth. LEVOTHYROXINE 200 MCG TABLET TRI-SPRINTEC (28) 0.18 MG(7)/* Problem List As Of Date 10/03/2017 Noted Resolved Thyroid cancer (HCC) [C73] INVALID FOR* Disposition: Return in about 6 months (around 04/04/2018). Follow-up and Disposition History Recorded Encounter Status:Closed by Ronnell EVANGELISTA MD on 10/05/17 [facility] PROGRESSon 10-03-2017 Protein mass conc HNO ID: [id number] Author: Ronnell Evangelista Service: (none) Author Type: Physician Type: Progress Notes Filed: 10/05/2017 12:56 PM Note Text: Radiation Oncology - follow-up Note PATIENT NAME: Caitlyn Restrepo PATIENT DIAGNOSIS: 26 year old female with thyroid cancer, papillary carcinoma, stage pT2 N0. HPI: Patient underwent I-131 ablative therapy on 08/09/16, I-131 dose 75 mCi. Overall doing well. She has been started on Cytomel and feels somewhat better after this. No other new problems. laboratory:Results for CAITLYN RESTREPO ( ) as of 10/03/2017 11:39 Ref. Range 07/19/2016 15:32 09/21/2017 11:26 Thyroglobulin Latest Ref Range: 1.6 - 59.9 ng/mL 2.7 2.4 TG Antibody Screen Latest Ref Range: <14.4 IU/mL 1.7 1.8 Thyroglobulin Ab Latest Ref Range: <14.4 IU/mL 1.8 Thyroglobulin 3 5.3, thyroglobulin antibody < 1.0. 02/22/17 4.8 3 ALLERGIES: ALLERGIES Allergen Reactions - Septra [Sulfamethox* Hives MEDICATIONS: liothyronine sodium (CYTOMEL ORAL) Take 10 mcg by mouth. levothyroxine (SYNTHROID) 200 mcg tablet TRI-SPRINTEC 0.18/0.215/0.25 mg-35 mcg (28) tab PAST MEDICAL HISTORY Diagnosis Date - Thyroid cancer (HCC) Prior radiation therapy, collagen vascular disease, or inflammatory bowel disease: No status: Patient states there is no possibility she is at this time. Educated on risks of during treatment. PAST SURGICAL HISTORY Procedure Laterality Date - REPAIR OF FOOT TENDON - THYROIDECTOMY Bilateral 2017 - TONSILLECTOMY HX FAMILY HISTORY Problem Relation Age of Onset - Lymphoma [OTHER] Maternal Aunt SOCIAL HISTORY: Social History Substance Use Topics - Smoking status: Never Smoker - Smokeless tobacco: Not on file - Alcohol use Not on file COMPLETE REVIEW OF SYSTEMS: GENERAL: Negative for weight loss, fevers, chills, or night sweats. HEENT: Negative for sudden vision or hearing changes. NECK: Negative for masses in the neck. RESPIRATORY: Negative for cough or shortness of breath. CARDIAC: Negative for chest pain, palpitations, murmurs, or syncopal episodes. GI: Negative for nausea, vomiting, diarrhea, constipation, blood per rectum, or melena. : Negative for dysuria, hematuria, urgency, frequency or incontinence. MUSCULOSKELETAL: Negative for limitations in movement, pain, or swelling. NEURO: Negative for dizziness, headache, weakness or numbness. HEMATOLOGIC: Negative for bleeding or easy bruising. SKIN: Negative for rashes or other skin changes. PHYSICAL EXAM: KPS: 100 General Appearance: Alert and oriented. No acute distress. HEENT: NCAT. Sclera anicteric. PERRL. EOMI. Oral cavity AND oropharnyx: lips and gums normal, oral and pharyngeal mucosa moist, palate elevates normally, tongue mobile and without palpable lesions, tonsils without masses Neck: Normal ROM. No palpable cervical or supraclavicular adenopathy. Well-healed low neck incision Musculoskeletal: No edema. Normal ROM in extremities. No bone or spine tenderness. Skin: No rashes noted Lymphatics: No palpable lymphadenopathy. RADIOLOGY/LABORATORY DATA: see HPI STAGE: T: 2 N: 0 M: X ASSESSMENT: Thyroid cancer, papillary carcinoma, tall cell histology, pT2 N0 MX. PLAN: Overall patient doing well. She does have detectable thyroglobulin after stimulation with Thyrogen however this continues to decline. Recommend repeat spot value in 6 months. She is having some issues with getting her TSH down and has been started on Cytomel with some success per Dr. Albright. She continues close follow-up with him as well. Recommend repeat thyroglobulin in 6 months and consider neck ultrasound should this value not continue to decrease. Signed by: Ronnell Evangelista MD cc: Julienne Horta MD ([facility]) Dr. Albright [facility] Thyroglobulinon 09-21-2017 TG Antibody Screen 1.8 IU/mL Normal <14.4 [facility] Comment on above: Performed By: #### T SOPHIA, TG #### [facility] [address] [id number] Thyroglobulin 2.4 ng/mL Normal 1.6-59.9 [facility] Comment on above: Result Comment: Test analyzed by the Siemens Immulite method Performed By: #### Stella CORTES, TG #### [facility] [address], [place] [id number] Thyroglobulin Abon 8 Thyroglobulin Ab Qn 1.8 [IU]/mL Normal <14.4 [facility] Comment on above: Performed By: #### Stella CORTES, TG #### [facility] [address], [place] [id number] CNNURSEon 09-18-2017 CNNURSE Nurse Visit (RADTSA) CAITLYN [id number]) 1990 F Date Time Provider Department 09/18/17 11:00 AM NURSE YENNI MARTIN During your visit today, we recorded the following information about you: Temperature Pulse Respiration Blood pressure 98.4 degrees 69/minute 18/minute 108/70 Weight 93 kg Referring Provider: Ronnell EVANGELISTA [[id number]] Allergies As of Date: 09/18/2017 Noted Allergy Reaction SEPTRA (SULFAMETHOXAZOLE-TRIM ETHO*07/19/2016 4 - Hives Date Reviewed: 03/13/2017 Reviewed by: [place] (Rn) Marvin RN - Fully Assessed Reason for Visit: Imm/Inj [58] Primary Visit Diagnosis:Thyroid cancer (HCC) [C73] Order(s):thyrotropin donte 0.9 mg injection (THYROGEN)Disp: Rfl: Prescriptions as of 09/18/2017 Sig: LEVOTHYROXINE 200 MCG TABLET TRI-SPRINTEC (28) 0.18 MG(7)/* Problem List As Of Date 09/18/2017 Noted Resolved Thyroid cancer (HCC) [C73] INVALID FOR* Prescriptions ordered this encounter Disp Refills Start End THYROTROPIN DONTE 1.1 MG INTRAMUSCULA* 09/18/2017 09/18/2017 Route: INTRAMUSCULA Encounter Status:Closed by HOUSTON WONG on 09/18/17 [facility] 09[facility]17[facility] (RADTSA[facility] CAITLYN RESTREPO ([id number]) 1990 F Date Time Provider Department 09/17/17 10:00 AM NURSE YENNI MARTIN During your visit today, we recorded the following information about you: Temperature Pulse Blood pressure Weight 98.6 degrees 84/minute 134/74 93 kg Referring Provider: Ronnell EVANGELISTA [[id number]] Allergies As of Date: 09/17/2017 Noted Allergy Reaction SEPTRA (SULFAMETHOXAZOLE-TRIM ETHO*07/19/2016 4 - Hives Date Reviewed: 03/13/2017 Reviewed by: [place] (Rn) LANE Wong - Fully Assessed Reason for Visit: Thyroid Cancer [879] Primary Visit Diagnosis:Thyroid cancer (HCC) [C73] Order(s):thyrotropin donte 0.9 mg injection (THYROGEN)Disp: Rfl: Prescriptions as of 09/17/2017 Sig: LEVOTHYROXINE 200 MCG TABLET TRI-SPRINTEC (28) 0.18 MG(7)/* Problem List As Of Date 09/17/2017 Noted Resolved Thyroid cancer (HCC) [C73] INVALID FOR* Prescriptions ordered this encounter Disp Refills Start End THYROTROPIN DONTE 1.1 MG INTRAMUSCULA* 09/17/2017 09/17/2017 Route: INTRAMUSCULA Encounter Status:Closed by HOUSTON WONG on 09/17/17 [facility] CNOVon 09-17-2017 CNOV Office Visit (RADTSA ) CAITLYN RESTREPO ([id number]) 1990 F Date Time Provider Department 09/17/17 10:30 AM Ronnell EVANGELISTA During your visit today, we recorded the following information about you: Weight Height 93 kg 1.638 m Ronnell Evangelista MD 09/18/2017 10:40 AM Signed Addended by: Ronnell EVANGELISTA MD on: 09/18/2017 10:40 AM Modules accepted: Orders Referring Provider: Ronnell EVANGELISTA [[id number]] Allergies As of Date: 09/17/2017 Noted Allergy Reaction SEPTRA (SULFAMETHOXAZOLE-TRIM ETHO*07/19/2016 4 - Hives Date Reviewed: 03/13/2017 Reviewed by: [place] (Rn) LANE Wong - Fully Assessed Primary Visit Diagnosis:Thyroid cancer (HCC) [C73] Prescriptions as of 09/17/2017 Sig: LEVOTHYROXINE 200 MCG TABLET TRI-SPRINTEC (28) 0.18 MG(7)/* Problem List As Of Date 09/17/2017 Noted Resolved Thyroid cancer (HCC) [C73] INVALID FOR* Encounter Status:Closed by Ronnell EVANGELISTA MD on 09/17/17 [facility] Encounters Encounter Date Encounter Type Care Provider Facility Start: 05-16-2023 End: 05-16-2023 ambulatory FAISAL MANSFIELD Not Available Start: 03-28-2023 End: 03-28-2023 ambulatory Skinny Schumacher Facility:[facility] Start: 03-28-2023 End: 03-28-2023 ambulatory Rodrick Jara Work Phone: [facility] Work Phone: Start: 03-28-2023 End: 03-28-2023 Departed Referred Rodrick Jara Work Phone: [facility] [place] Work Phone: Start: 09-11-2022 End: 09-12-2022 ambulatory AIXA ORTEGA Facility:[facility] Start: 09-01-2022 End: 09-02-[address] RODRICK JARA . Facility:[facility] Start: 08-18-2022 End: 08-19-2022 ambulatory SKINNY SCHUMACHER Facility:[facility] Start: 06-13-2022 End: 06-13-2022 ambulatory SKINNY SCHUMACHER Facility:[facility] Start: 03-22-2022 End: 03-22-2022 ambulatory AIXA ORTEGA Facility:[facility] Start: 11-17-2021 End: 11-17-2021 ambulatory SHAIKH Kaila MAYNARD Facility: Start: 04-03-2018 End: 04-04-2018 Patient encounter procedure Ronnell EVANGELISTA [facility] Start: 04-03-2018 End: 04-09-2018 Patient encounter procedure Ronnell EVANGELISTA [facility] Start: 10-29-2017 End: 10-30-2017 Ambulatory Ko Monique [place] [place] Start: 10-03-2017 End: 10-05-2017 Patient encounter procedure Ronnell EVANGELISTA [facility] Start: 09-21-2017 End: 09-21-2017 Patient encounter procedure Ronnell EVANGELISTA [facility] Start: 09-18-2017 End: 09-19-2017 Patient encounter procedure Ronnell EVANGELISTA [facility] Start: 09-17-2017 End: 11-20-2017 Patient encounter procedure Ronnell EVANGELISTA [facility] Payers Date Payer Category Payer Self-pay 2022 Unknown [id number] 2019 Unknown [id number] 1990 Unknown [id number] 2.16.84 [id number] 1990 Unknown [id number] 2.16.84 [id number] 1990 Unknown [id number] 2.16.84 [id number] 1990 Unknown [id number] 2.16.84 [id number] 1990 Unknown [id number] 2.16.84 [id number] 1990 Unknown [id number] 2.16.84 [id number] 1990 Unknown [id number] 1958 Self-pay [id number] Unknown MMO [id number] 95 [id number] Unknown [id number] 2.16.8 [id number] Social History Date Type Detail Facility Tobacco smoking stat [facility] Unknown if ever smoked [facility] Work Phone: Start: 1990 Sex Assigned At Female F [facility] Evaluation note Note Date & Type Note Facility Evaluation note No assessment information availa melina [facility] Work Phone: Summary Purpose Family History No Family History Records FoundNo Family History Records FoundNo Family History Records FoundNo Family History Records FoundNo Family History Records Found Advance Directives No Advanced Directives Records FoundNo Advanced Directives Records FoundNo Advanced Directives Records FoundNo Advanced Directives Records FoundNo Advanced Directives Records Found Additional Source Comments INFORMATION SOURCE (unrecogn ized section and content) DATE CREATED AUTHOR [facility] DATE CREATED AUTHOR AUTHOR'S ORGANIZ ATION 08/14/2018 [facility] DATE CREATED AUTHOR AUTHOR'S ORGANIZ ATION 09/16/2022 [facility] DATE CREATED AUTHOR AUTHOR'S ORGANIZ ATION 04/06/2023 [facility] DATE CREATED AUTHOR AUTHOR'S ORGANIZ ATION 05/18/2023 [facility] [employer] Care Teams (unrecognized sec tion and content) Team Status: Inactive Member Role Status Dates Rodrick Jara Attending Provider Active Goals (unrecognized section and content) Goals may be documented in a n alternate section FOR RECORDS PERTAINING TO PATIENTS WHO ARE OR HAVE BEEN ENROLLED IN A CHEMICAL DEPENDENCY/SUBSTANCEABUSE PROGRAM, SOME INFORMATION MAY BE OMITTED. This clinical summary was aggregated from multiple sources. Caution should be exercised in using it in the provision of clinical care. This summary normalizes information from multiple sources, and as a consequence, information in this document may materially change the coding, format and clinical context of patient data. In addition, data may be omitted in some cases. CLINICAL DECISIONS SHOULD BE BASED ON THE PRIMARY CLINICAL RECORDS. [employer] provides no warranty or guarantee of the accuracy or completeness of information in this document.
[2024-01-17 17:09] LABS: Estimated Average Glucose 131 mg/dL; Glycohemoglobin A1C 6.2 % (4.5-6.2)
[2024-01-17 17:23] LABS: Basophils Absolute Auto 0.1 10^3/uL (0.0-0.1); Basophils Percent Auto 0.6 % (0.2-2.0); Eosinophils Absolute Auto 0.3 10^3/uL (0.0-0.7); Eosinophils Percent Auto 2.7 % (0.9-7.0); Hematocrit 41.6 % (36.0-48.0); Hemoglobin 13.5 g/dL (12.0-16.0); Immature Granulocytes Abs Auto 0.05 10^3/uL (0.00-0.03); Immature Granulocytes Pct Auto 0.4 % (0.0-0.5); Lymphocytes Absolute Auto 4.8 10^3/uL (1.2-3.8); Lymphocytes Percent Auto 38.4 % (20.5-60.0); Mean Corpuscular HGB Conc 32.5 g/dL (29.9-35.2); Mean Corpuscular Hemoglobin 28.8 pg (26.7-34.0); Mean Corpuscular Volume 88.7 fL (81.0-99.0); Mean Platelet Volume 10.9 fL (9.5-13.5); Monocytes Absolute Auto 0.5 10^3/uL (0.3-0.8); Monocytes Percent Auto 4.3 % (1.7-12.0); Neutrophils Absolute Auto 6.7 10^3/uL (1.4-6.5); Neutrophils Percent Auto 53.6 % (43.0-75.0); Platelet Count 273 10^3/uL (150-450); Red Blood Count 4.69 10^6/uL (4.20-5.40); White Blood Count 12.4 10^3/uL (4.0-11.0)
[2024-01-17 17:43] LABS: Free T4 1.32 ng/dL (0.76-1.46)
[2024-01-17 17:48] LABS: Alanine Aminotransferase 28 U/L (14-59); Albumin Globulin Ratio 1.1; Albumin Level 3.9 g/dL (3.4-5.0); Alkaline Phosphatase 70 U/L (46-116); Anion Gap 11.5; Aspartate Amino Transferase 13 U/L (15-37); BUN Creatinine Ratio 17.9; Bilirubin Direct 0.1 mg/dL (0.0-0.2); Bilirubin Total 0.2 mg/dL (0.2-1.0); Calcium 9.1 mg/dL (8.5-10.1); Carbon Dioxide 27.4 mmol/L (21.0-32.0); Chloride 104 mmol/L (98-107); Chol HDL Ratio 4.5; Cholesterol 190 mg/dL (<=200); Estimated GFR (African America >60 (>=60); Estimated GFR (Non-African Ame >60 (>=60); Globulin 3.4 g/dL; Glucose 107 mg/dL (74-106); HDL Cholesterol 42 mg/dL (40-60); Potassium 3.9 mmol/L (3.5-5.1); Sodium 139 mmol/L (136-145); Thyroid Stimulating Hormone 0.785 uIU/mL (0.358-3.740); Total Protein 7.3 g/dL (6.4-8.2); Triglycerides 219 mg/dL (<=150); VLDL CHOLESTEROL 43.8 mg/dL
== END 2024-01-17 16:31 | disposition home or self-care (01) ==
LOC: LAB 16:32
PROVIDERS: PCP Family Medicine; Visit Provider Family Medicine
DX: Z00.00 Encounter for general adult medical examination without abnormal findings (principal); E89.0 Postprocedural hypothyroidism
CPT/HCPCS: 36415; 80048; 80061; 80076; 83036; 84439; 84443; 84481; 85025

== ENCOUNTER 2025-04-13 22:24 | Emergency (ER) | payer OTHER, SELFPAY ==
--- OUTSIDE RECORDS SUMMARY | 2025-04-13 22:57 | XMS_ITS | CCD ---
Author Organization [facility] Care Team Providers Care Fire Protection Engineer Name Role Phone Ko Monique Ronnell Unavailable Unavailable ENGELER, G NORMA Referring Unavailable [...] HORTA Referring Unavailable SHANNON, AIXA Consulting Unavailable SHANNON, AIXA Admitting Unavailable SHANNONAIXA WALDROP Attending Unavailable NADERER, SKINNY A Primary Care Unavailable MAREK ., DR MENSAH Admitting Unavailable MAREK ., DR MENSAH Attending Unavailable NADERER, SKINNY A Primary Care Unavailable MAREK ., DR MENSAH Consulting Unavailable NADERER, SKINNY A Primary Care Unavailable SHANNON, AIXA Admitting Unavailable SHANNONAIXA Attending Unavailable SHANNON, AIXA Consulting Unavailable NADERER, SKINNY A Primary Care Unavailable MAREK ., DR MENSAH Admitting Unavailable MAREK ., DR MENSAH Attending Unavailable MAREK ., DR MENSAH Consulting Unavailable ZIJANNA, DR RUDDY Goldstein Consulting Unavailable SHANNON, AIXA Admitting Unavailable SHANNON, AIXA Attending Unavailable SHANNON, AIXA Consulting Unavailable NADERER, SKINNY A Primary Care Unavailable FAWWAD, GALVAN H Admitting Unavailable FAWWAD, GALVAN H Attending Unavailable FAWWAD, GALVAN H Consulting Unavailable NADERER, SKINNY A Primary Care Unavailable Rodrick Jara Attending Provider [phone] FAISAL MANSFIELD Attending Unavailable SKINNY SCHUMACHER Attending Unavailable Quintin Damon Attending Unavailab Quintin Escalera Admitting Unavailab Skinny Toscano Primary Care Unavailable Allergies Allergy ClassificationReported Allergen(s)Allergy TypeDate of OnsetReaction(s) Facility (1 source)Sulfamethoxazole / Trimethoprim; Translations: [SULFAMETHOXAZOLE-TRIMETHOPRIM]Drug Mjaywyo86-11-4868PcadnpkuyOhiohealth Pickerington [facility] Repository (1 source)Amoxicillin / ClavulanateDrug AllergyThe [facility] (1 source)bee venomDrug allergy (disorder)[facility]ository (1 source)Sulfamethoxazole / TrimethoprimDrug AllergyThe [facility]ository Problems Active Problems Problem ClassificationProblemDateDocumented DateEpisodic/ChronicCancer of thyroid (1 source)Malignant neoplasm of thyroid gland; Translations: [Malignant neoplasm of thyroid gland]Onset: 49-91-1797QrnqoicGvedahyqbvgqw and screening for infectious disease (1 source)Encounter for screening for other infectious and parasitic diseases; Translations: [ENC SCREENING OTH INF PARASITIC DZ]Onset: 27-52-2092Cnlljdhb Menstrual disorders (4 sources)Irregular menstruation, unspecified; Translations: [IRREGULAR MENSTRUATION UNSPECIFIED]Onset: 07-03-5371RawzmdrGnjve and delivery including normal (1 source)Encounter for supervision of normal , unspecified, first trimester; Translations: [ENC SUPNORMAL PREG UNS FIRST TRI]Onset: 09-05-2022 EpisodicResidual codes; unclassified (1 source)Pain, unspecified; Translations: [Pain, unspecified]Onset: 04-03-2018 Unclassified (3 sources)CONTACT W/AND (SUSP) EXPOS COVID-19; Translations: [CONTACT W/AND (SUSP) EXPOS COVID-19]Onset: 09-15-2022 Past or Other Problems Problem ClassificationProblemDateDocumented DateEpisodic/ChronicCancer of thyroid (1 source)Personal history of malignant neoplasm of thyroid; Translations: [Personal history of malignant neoplasm of thyroid]Onset: 50-62-7995Mdkshhaf Unclassified (1 source)CONTACT W/AND (SUSP) EXPOS COVID-19; Translations: [CONTACT W/AND (SUSP) EXPOS COVID-19]Onset: 09-11-2022 Results Test NameValueInterpretationReference RangeFacilityFibrinogen [Mass/volume] in Platelet poor plasma by Coagulation assayOrdered By: Rodrick Jara on 03-28-2023 Fibrinogen Coag (PPP) [Mass/Vol]382 mg/hA469-494CweybzrspAultman HospitalComment on above:A hematocrit value greater than 55% may lead to inaccurate results in coagulation testing. Patientshaving hematocrit values >55% require a special collection tube for coagulation studies. Please contact the laboratory at [phone] for redraw instructions.Covid-19 PCR ([facility])on 83-09-1440PTQG-CoV-2 (COVID-19) RNA MEY+probe Ql (Unsp spec)Not detectedNormal NOT DETECTEDThe [facility] HospitalComment on above:Result Comment: This test is not yet approved or cleared by the [place] FDA. When there are no FDA- approved or cleared tests available, and other criteria are met, FDA can make tests available under an emergency access mechanism called an Emergency Use Authorization (EUA). The EUA for this test is supported by the [place] Manager of Health and Human Service's (HHS's) declaration [...] of clinical signs and symptoms consistent with SARS-CoV-2.Performed By: #### CVDTBH #### [facility] [address] [place] [address] Dr. Daniel Stevens AND B AGon 89-87-3613QCPTVEBPQELNJMercy Health Willard HospitalComment on above:Result Comment: Negative for Flu A protein angiten. Infection due to Flu A cannot be ruled out. FluA angiten in the sample may be below the detection limit of the test.Performed By: #### TSH #### [facility] [address] [place] [address] Dr. Daniel MondragonINFLUBNEGHSEE BELOWNoSycamore Medical Center on above: Result Comment: Negative for Flu B protein antigen. Infection due to Flu B cannot be ruled out. FluB antigen in the sample may be below the detection limit of the test.Performed By: #### TSH #### [facility] [address] [place] [address] Dr. Daniel Stevens AGNegativeNormalNEGATIVE SEE COMMENTThe [facility] on above:Performed By: #### TSH #### [facility] [address] [place] [address] Dr. Daniel Martinez AGNegativeNormalNEGATIVE SEE COMMENTThe [facility] on above:Performed By: #### TSH #### [facility] [address] [place] [address] Dr. Daniel BishopMATIC COVID-19 ANTIGENon 63-36-3343VBG StatementSEE BELOW [facility] on above:Result Comment: This test has not been FDA [...] declaration is terminated or authorization is revoked sooner.Performed By: #### CVDAGS #### [facility] [address] [place] [address] Dr. Daniel PalominoRS-CoV-2 (COVID-19) RNA MEY+probe Ql (Unsp spec)NegativeNormal NEGATIVEThe [facility]tering Health Troyment on above:Performed By: #### CVDAGS #### [facility] [address] [place] [address] Dr. Daniel Naylor B SURFACE ANTIGEN SCREENon 27-22-9488XJlFu ScreenNegative NormalNegativeThe [facility] HospitalComment on above:Performed By: #### HBSANS #### [facility] [address] [place] [address] Dr. Daniel Lee C VIRUS AB W/ REFLEX QUANTon 97-37-5401UVJ AB Non-ReactiveNormalNon ReactiveThe [facility] HospitalComment on above:Performed By: #### TSH #### [facility] [address] [place] [address] Dr. Daniel MondragonInterpretation:CommentNormalThe [facility] HospitalCommclaren [facility] [place] on above:Result Comment: Not infected with HCV unless early or acute infection is suspected (which may be delayed in an immunocompromised individual), or other evidence exists to indicate HCV infection.Performed By: #### TSH #### [facility] [address] [place] [address] Dr. Daniel Carrillo 1 AND 2 WITH REFLEXon 81-22-5132ZMB Screen 4th Generation wRfxNon-ReactiveNormalNon ReactiveThe [facility] HospitalCommclaren [facility] [place] on above:Result Comment: HIV Negative HIV-1/HIV-2 antibodies and HIV-1 p24 antigen were NOT detected. There is no laboratory evidence of HIV infection.Performed By: #### TSH #### [facility] [address] [place] [address] Dr. Daniel MondragonRPR QUANTon 19-78-4147Ebokl Plasma Reagin, QuantNon-Reactive NormalNonRea<1:1The [facility] on above:Result Comment: Please Note: This test does not meet current guidelines for screening and diagnosis of syphilis. This test is intended for following treatment response in patients being treated for syphilis infection. To screen for syphilis infection, a reflex cascade that includes both RPR and a treponema-specific assay should be utilized, such as Treponema pallidum (Syphilis) Screening Amador (658217) or Rapid Plasma Reagin (RPR) Test With Reflex to Quantitative RPR and Confirmatory Treponema pallidum Antibodies (711006).Performed By: #### RPRQ #### [facility] [address] [place] [address] Dr. Daniel Nolasco AB IGGon 82-62-9824Apouiph Antibodies, IgG2.14 index NormalImmune >0.99The [facility] HospitalComment on above:Result Comment: Non- immune <0.90 Equivocal 0.90 - 0.99 Immune >0.99Performed By: #### TSH #### [facility] [address] [place] [address] Dr. Daniel Howard AUTO DIFFon 32-00-7725VARZ #0.0 103/ulNormal0.0-0.1The [facility] HospitalComment on above:Performed By: #### CBC #### [facility] [address] [place] [address] Dr. Daniel MondragonBasophils/100 WBC (Bld)0.3 %Normal0.2-2.0The [facility] Comment on above:Performed By: #### CBC #### [facility] [address] [place] [address] Dr. Daniel Jamison #0.1 103/ulNormal0.0-0.7The [facility] HospitalComment on above: Performed By: #### CBC #### [facility] [address] [place] [address] Dr. Daniel Gómezosinophils/100 WBC (Bld)0.7 %Critically low0.9-7.0The [facility] HospitalComment on above:Performed By: #### CBC #### [facility] [address] [place] [address] Dr. Daniel Gómezrythrocyte distribution width (RBC) [Ratio]14.4 %Hdxvvs83.0-15.0 The [facility] HospitalComment on above:Performed By: #### CBC #### [facility] [address] [place] [address] Dr. Daniel MondragonHematocrit (Bld) [Volume fraction]38.9 %Hrzthj97.0-48.0The [facility] HospitalComment on above:Performed By: #### CBC #### [facility] [address] [place] [address] Dr. Daniel MondragonHemoglobin (Bld) [Mass/Vol]12.7 g/kXLvynso49.0-16.0The [facility] HospitalComment on above:Performed By: #### CBC #### [facility] [address] [place] [address] Dr. Daniel Salter #0.05 10e3/ulCritically high0.00-0.03The [facility] Comment on above:Performed By: #### CBC #### [facility] [address] [place] [address] Dr. Daniel MondragonIG %0.3 %Normal0.0-0.5The [facility] HospitalComment on above: Performed By: #### CBC #### [facility] [address] [place] [address] Dr. Daniel Carr #4.0 103/ulCritically high1.2-3.8The [facility] Comment on above:Performed By: #### CBC #### [facility] [address] [place] [address] Dr. Daniel Batesmphocytes/100 WBC (Bld)27.2 %Kfkgpz59.5-60.0The [facility] HospitalComment on above:Performed By: #### CBC #### [facility] [address] [place] [address] Dr. Daniel MondragonMANUAL DIFF REQNONormalThe [facility] HospitalComment on above: Performed By: #### CBC #### [facility] [address] [place] [address] Dr. Daniel Mora (RBC) [Entitic mass]27.4 jcPxixrt57.7-34.0The [facility] HospitalComment on above:Performed By: #### CBC #### [facility] [address] [place] [address] Dr. Daniel ClarkeHC (RBC) [Mass/Vol]32.6 g/wTXgdvro08.9-35.2The [facility] HospitalComment on above:Performed By: #### CBC #### [facility] [address] [address] [address] Daniel ClarkeV (RBC) [Entitic vol]83.8 nMBhfqsk07.0-99.0The [facility] HospitalComment on above:Performed By: #### CBC #### [facility] [address] [address] [address] Daniel Balderas #0.6 103/ulNormal0.3-0.8The [facility] HospitalComment on above:Performed By: #### CBC #### [facility] [address] [place] [address] Dr. Daniel Yatesocytes/100 WBC (Bld)4.0 %Normal1.7-12.0The [facility] Comment on above:Performed By: #### CBC #### [facility] [address] [place] [address] Dr. Daniel Duncan #10.0 103/ulCritically high1.4-6.5The [facility] Comment on above:Performed By: #### CBC #### [facility] [address] [place] [address] Dr. Daniel Muñozutrophils/100 WBC (Bld)67.5 %Prrsij77.0-75.0The [facility] HospitalComment on above:Performed By: #### CBC #### [facility] [address] [place] [address] Dr. Daniel Salinaslet mean volume (Bld) [Entitic vol]10.4 fLNormal9.5-13.5The [facility] HospitalComment on above:Performed By: #### CBC #### [facility] [address] [address] [address] Daniel MondragonPLT285 103/kxLoqqih585-547Ujo [facility] HospitalComment on above: Performed By: #### CBC #### [facility] [address] [address] [address] Daniel MondragonRBC4.64 106/ulNormal4.20-5.40The [facility] on above:Performed By: #### CBC #### [facility] [address] [place] [address] Dr. Daniel MondragonWBC14.8 103/ulCritically high4.0-11.0The [facility] HospitalComment on above:Performed By: #### CBC #### [facility] [address] [place] [address] Dr. Daniel MondragonCULTURE URINEon 30-26-4002HCGBZUU URINECulture Observations: NO GROWTH.NormalThe [facility] HospitalCommclaren northern [place] on above:Performed By: #### TSH #### [facility] [address] [place] [address] Dr. Daniel MondragonGLYCOHEMOGLOBIN A1Con 35-50-7663BHY RECOMMENDATIONSEE BELOWNormal The [facility] HospitalCommclaren [facility] [place] on above:Result Comment: ADA RECOMMENDED LIMIT 4.0 - 6.0 ADA THERAPEUTIC TARGET < 7.0 ACTION SUGGESTED > 7.0Performed By: #### TSH #### [facility] [address] [place] [address] Dr. Daniel MondragonGlucose [Mass/Vol]137 mg/dLNormalThe [facility] on above:Performed By: #### TSH #### [facility] [address] [place] [address] Dr. Daniel MondragonHbA1c (Bld) [Mass fraction]6.4 %Critically high4.5-6.2The [facility] on above:Performed By: #### TSH #### [facility] [address] [place] [address] Dr. Daniel MondragonTSHonita 33-51-4011ZJR4.879 uIU/mLNormal0.358-3.740The [facility] on above:Performed By: #### TSH #### [facility] [address] [place] [address] Dr. Daniel MondragonTYPE AND SCREENon 53-16-8478LGHM AND SCREENNegativeNoBrown Memorial HospitalComment on above:Performed By: #### TSH #### [facility] [address] [place] [address] Dr. Daniel Gaitan PREG TVon 58-82-5417GZ PREG TVEXAMINATION: US PREG TV HISTORY: Irregular periods ; [...] Electronically authenticated by: RUDDY SANCHEZ Date: 2022-08-18 16:19NoBrown Memorial HospitalCovid-19 PCR (CVDTB)on 76-13-6714UBIB-CoV-2 (COVID-19) RNA MEY+probe Ql (Unsp spec)Not detectedNormalNOT DETECTEDThe [facility] Comment on above:Result Comment: When diagnostic testing is negative, the [...] for this test is supported by the [place] Manager of Health and Human Service's declaration that circumstances exist to justify the emergency use of in vitro diagnostics for the detection and/or diagnosis of the virus that causes COVID-19. This EUA will remain in effect for the duration of the COVID-19 declaration justifying emergency of IVDs, unless it is terminated or revoked by the FDA (after which the test may no longer be used).Performed By: #### CVDTBH #### [facility] [address] [place] [address] Dr. Daniel Stevens AND B AGon 64-70-8647TQIVLVLLPXAFVOhioHealth Arthur [facility] on above:Result Comment: Negative for Flu A protein angiten. Infection due to Flu A cannot be ruled out. FluA angiten in the sample may be below the detection limit of the test.Performed By: #### INFLUAB #### [facility] [address] [place] [address] Dr. Daniel HancockUBNEGOhioHealth Arthur [facility], [facility] on above: Result Comment: Negative for Flu B protein antigen. Infection due to Flu B cannot be ruled out. FluB antigen in the sample may be below the detection limit of the test.Performed By: #### INFLUAB #### [facility] [address] [place] [address] Dr. Daniel Stevens AGNegativeNormalNEGATIVE SEE COMMENTThe [facility] on above:Performed By: #### INFLUAB #### [facility] [address] [place] [address] Dr. Daniel Martinez AGNegativeNormalNEGATIVE SEE COMMENTThe [facility] on above:Performed By: #### INFLUAB #### [facility] [address] [place] [address] Dr. Daniel MondragonColuisd-19 PCR ([facility])on 23-00-1989QLWG-CoV-2 (COVID-19) RNA MEY+probe Ql (Unsp spec)Not detectedNormalNOT DETECTEDThe [facility] Comment on above:Result Comment: When diagnostic testing is negative, the [...] for this test is supported by the [place] Manager of Health and Human Service's declaration that circumstances exist to justify the emergency use of in vitro diagnostics for the detection and/or diagnosis of the virus that causes COVID-19. This EUA will remain in effect for the duration of the COVID-19 declaration justifying emergency of IVDs, unless it is terminated or revoked by the FDA (after which the test may no longer be used).Performed By: #### CVDTBH #### [facility] [address] [place] [address] Dr. Daniel Stevensd-19 PCR ([facility])on 47-90-1245QDBS-CoV-2 (COVID-19) RNA MEY+probe Ql (Unsp spec)Not detectedNormalNOT DETECTEDThe [facility] Comment on above:Result Comment: This test is not yet approved or cleared by the [place] FDA. When there are no FDA-approved or cleared tests available, and other criteria are met, FDA can make tests available under an emergency access mechanism called an Emergency Use Authorization (EUA). The EUA for this test is supported by the [place] of Health and Human Service's (HHS's) declaration that circumstances exist to justify the emergency use of in vitro diagnostics for the detection and/or diagnosis of the virus that causes COVID- 19. This EUA will remain in effect (meaning [...] of clinical signs and symptoms consistent with SARS-CoV-2.Performed By: #### CVDTB #### [facility] [address] [place] [address] [address] [address] Daniel MondragonCNCOon 72-26-9515BIPPHwjadn TextNormalCMercy Health St. [facility] Hospital CBC and Differentialon 22-96-6253Bre Baso0.04 k/uLNormal0.00-0.10White HospitalAbs Mono0.45 k/uLNormal0.00-0.86White HospitalAbs Neut6.61 k/uLNormal1.45-7.50White HospitalBasophils/100 WBC (Bld)0.4 %NormalWhite HospitalEosinophils #/vol (Bld)0.24 10*3/uLNormal 0.00-0.45White HospitalEosinophils/100 WBC (Bld)2.3 %NormalWhite HospitalErythrocyte distribution width Ratio (RBC)12.9 %Bergoz06.5-15.0 White HospitalHematocrit Volume Fraction (Bld)43.0 %Siutxm92.0-46.0 White HospitalHemoglobin mass conc (Bld)14.4 g/nMBopesm60.5-15.5 White HospitalLymphocytes #/vol (Bld)3.05 10*3/uLNormal1.00-4.00 White HospitalLymphocytes/100 WBC (Bld)29.4 %NormalPomerene Hospital Entitic mass (RBC)30.4 zINxizup95.0-34.0[facility] MCHC mass conc (RBC)33.5 g/wGQzpzxi14.5-36.0[facility] Entitic volume (RBC)90.9 wHSznfjw40.0-100.0[facility] Monocytes/100 WBC (Bld)4.3 %NormalWhite HospitalNeutrophils/100 WBC (Bld)63.6 %NormalWhite HospitalPlatelet mean volume Entitic volume (Bld)10.5 fLNormal9.0-12.7CUniversity Hospitals Elyria Medical CentervelandPlatelets #/vol (Bld)253 10*3/lPLvtwti353-227Nrhzlbphm Clinic ClevelandRBC #/vol (Bld)4.73 10*6/uLNormal 3.90-5.20[facility] ClevelandWBC #/vol (Bld)10.39 10*3/uLNormal3.70-11.00 White HospitalCNOVon 96-00-7552CBILTvixny Visit (RADTSA) MYACAITLYN ([id number]) 1990 F Date Time Provider Department 04/03/18 1:30 PM LAB/PORT RADT DIONE VERONICA During your visit today, we recorded the following information about you: Ashley Johnson LPN, LANE 04/03/2018 4:35 PM Signed Caitlyn Restrepo presents in office today for: Lab Draw during Office Visit . Ordering Provider: Norma Evangelista M.D. Test (s) ordered: CBC T4 Total 57256 TSH Sedrate Thyroglobulin Ab and QT LDH Method for obtaining blood: Phlebotomy was performed, accessing left antecubital vein. Needle removed intact. Dressing secured. Patient denies discomfort, dizziness, light-headedness or weakness and left the department without assist. Ashley Johnson LPN Referring Provider: JULIENNE HORTA [[id number]] Allergies As of Date: 04/03/2018 Noted Allergy Reaction SEPTRA (SULFAMETHOXAZOLE-TRIMETHO*07/19/2016 4 - Hives Date Reviewed: 04/03/2018 Reviewed [...] 03, 2018 4:33 PM Status: Signed Caitlyn Restrepo presents in office today for: Lab Draw during Office Visit . Ordering Provider: Norma Evangelista M.D. Test (s) ordered: CBC T4 Total 68387 TSH Sedrate Thyroglobulin Ab and QT LDH Method for obtaining blood: Phlebotomy was performed, accessing left antecubital vein. Needle removed intact. Dressing secured. Patient denies discomfort, dizziness, light-headedness or weakness and left the department without assist. Ashley JohnsonTAVO Encounter Status:Closed by ASHLEY JOHNSON on 04/03/18[facility] (RADTSA) CAITLYN RESTREPO ([id number]) 1990 F Date Time Provider Department 04/03/18 11:45 AM Ronnell EVANGELISTA During your visit today, we recorded the following information about you: Temperature Pulse Respiration Blood pressure 98.1 degrees 83/minute 16/minute 137/86 Weight 86.6 kg Ronnell Evangelista MD 04/08/2018 10:57 AM Signed Radiation [...] Ref Range: 1.00 - 4.00 k/uL 3.05 Addison% Latest Units: % 4.3 Abs Addison Latest Ref Range: 0.00 - 0.86 k/uL [...] Ronnell Evangelista MD cc: Julienne Horta MD ([facility]) Dr. Albright Referring Provider: Ronnell EVANGELISTA [[id number]] Allergies As of Date: 04/03/2018 Noted Allergy Reaction SEPTRA (SULFAMETHOXAZOLE-TRIMETHO*07/19/2016 4 - Hives Date Reviewed: 04/03/2018 Reviewed by: Ashley (Audio Visual Specialist) LANE Johnson - Fully Assessed Reason for Visit: Follow Up [171] Primary Visit Diagnosis:History of thyroid cancer [Z85.850] Other Visit Diagnosis:Body aches [R52] Order(s):THYROGLOBULIN BLD [SQTG] Order #: [id number] FUTURE THYROGLOBULIN AB [SQTGAB] Order #: [id number] FUTURE SED RATE WESTERGREN [SQWSR] Order #: [id number] FUTURE CBC + DIFF [SQCBCDIF] Order #: [id number] FUTURE LD LACTATE DEHYDRO [SQLD6] Order #: [id number] FUTURE T4/THYROXINE BLOOD [SQT4] Order #: [id number] FUTURE TSH BLD [SQTSH] Order #: [id number] FUTURE Prescriptions as of 04/03/2018 Sig: CYTOMEL ORAL Take 10 mcg by mouth. LEVOTHYROXINE 200 MCG TABLET TRI-SPRINTEC (28) 0.18 MG(7)/* Problem List As Of Date 04/03/2018 Noted Resolved Thyroid cancer (HCC) [C73] INVALID FOR* History of thyroid cancer [Z85.850] INVALID FOR* Disposition: Return in about 6 months (around 10/02/2018). Follow-up and Disposition History Recorded Encounter Status:Closed by Ronnell EVANGELISTA MD on 04/08/18NormalCKettering Health Washington Township [id number] U/CMosdjb248-139JklhosgkuWhite Hospital PROGRESSon 10-27-6424Ppsrnjo mass concHNO ID: [id number] Author: Ronnell Evangelista Service: (none) Author Type: [...] Ref Range: 1.00 - 4.00 k/uL 3.05 Addison% Latest Units: % 4.3 Abs Addison Latest Ref Range: 0.00 - 0.86 k/uL [...] Ronnell Evangelista MD cc: Julienne Horta MD ([facility]) Dr. AlbrightSt. Anthony's HospitalSed Rate Westergrenon 88-13-1323Myk Rate Westergren8 mm/hrNormal0-20[facility] on above: Performed By: #### WSR, T4, TSH ####[facility] [address] [place], [place] [phone] 64-95-0658E217.2 ug/dLHigh5.5-10.2 [facility] on above:Performed By: #### WSR, T4, TSH ####[facility] [address] [place], [place] [address] [phone] 68-23-4011Mzsuxquiwlv Qn2.510 uU/mLNormal0.400-5.500[facility] on above:Result Comment: If the patient is , TSH reference range varies by gestational period: First Trimester 0.100-2.500 uU/mL Second Trimester 0.200-3.000 uU/mL Third Trimester 0.300-3.000 uU/mL References: 1. Ashby, Citlali M, Genaro EK, et al. Management of Thyroid Dysfunction during and : An Endocrine Society Clinical Practice Guideline. J Clin Endocrinol Metab, 2012:97:0638-6311. 2. Jc PABLO. Overview of thyroid disease in . UpToDate. 2016. Accessed on November 26, 2015.Performed By: #### WSR, T4, TSH ####[address] [phone] 82-01-0504VM Antibody Screen1.6 IU/mLNormal<14.4ClevelWashington Regional Medical Centerment on above:Performed By: #### TGAB, TG ####[address] [phone] ng/mLLow1.6-59.9ClevelFirstHealthComment on above:Result Comment: Test analyzed by the Siemens Immulite methodPerformed By: #### TGAB, TG ####[address] [phone] Abon 78-89-7680Yhjicqrnfykjv Ab Qn1.6 [IU]/mLNormal<14.4ClevelFirstHealthCommclaren [facility] [place] on above:Performed By: #### TGAB, TG ####[address] [phone] 80-70-9703HOS/Creatinine Ratio16 No FngojUsqjdp98-59 [facility] CenterComment on above:Performed By: #### 4475756, 97121528, 6273506 ####[facility] [address] [place], [place] [address]Temsyfteob9.7 mg/dLNormal0.5-1.3FFort [facility] Comment on above:Performed By: #### 7690806, 94268267, 1331849 ####[facility] [address] [place], [place] [address]Ksfh mwnxtyif81 mg/dL Normal5-21[facility] HospitalComment on above:Performed By: #### 0416749, 42064796, 1349113 ####[facility] [address] [place], [place] [address]Vdojy gap14 mmol/LNormal6-16[facility] HospitalComment on above:Performed By: #### 9398389, 30622792, 0586602 ####[address] [place], [place] [address]Bddlmrn7.5 mg/dL Normal8.9-11.1FFort Hamilton HospitalComment on above:Performed By: #### 6439063, 28227946, 8134214 ####[address] [address]Jxqdgcup434 mmol/EMsnxnw638-599WkzlzaEast Liverpool City HospitalComment on above:Performed By: #### 4256472, 96638956, 8652460 ####[address] [address] mmol/L Tamksb37-44ZtaapjEast Liverpool City HospitalComment on above:Performed By: #### 1611895, 46528545, 6720595 ####[facility] [address] [place] [address]Haguqny mass dzsv134 mg/jJAcnxfe76-974EvyeqoEast Liverpool City HospitalComment on above:Result Comment: If this glucose result represents a fasting glucose, interpretation should refer tothe following reference range: 55-99 mg/dLPerformed By: #### 8773228, 30396731, 5901585 ####[facility] [address] [place], [place] [address]Lazqyynpe molar conc 3.8 mmol/LNormal3.5-5.3FFort Hamilton HospitalComment on above:Performed By: #### 9447245, 37724553, 0545664 ####[address] [address]Qavbjj260 mmol/QUvwlqn032-217ElgpucEast Liverpool City HospitalComment on above:Performed By: #### 0666088, 51591402, 9784969 ####[address] [address]Vmf Func Panelon 93-38-4149VKPUOEUIG.NON-GLUCURONIDATED:MSCNC:PT:SER/PLAS:QN:UTCAbnormal0.1-0.9 [facility] HospitalComment on above:Result Comment: Result verified by Discern Rule. Performed result UTC (Unable to Calculate) was sent as an Alpha code due the inability to calculate a valid numeric value.Performed By: #### 2174989, 86954006, 7919730 ####[address] [address]Yqxakqv8.3 g/dLNormal1.1-2.2FFort Hamilton HospitalComment on above:Performed By: #### 5405974, 25274197, 7552434 ####[address] [address]Pbyihza3.4 g/dL Normal3.3-5.0[facility] HospitalComment on above:Performed By: #### 0326992, 41500773, 5100898 ####[address] [address]Juxvgpyn phosphatase (ALP)55 Int._Unit/IKolmxy67-20 [facility] HospitalComment on above:Performed By: #### 3383706, 67059970, 4292062 ####[address] [address]VAN Without P-5'-P enzyme act/vol11 Int._Unit/LNormal6-46 [facility] HospitalComment on above:Performed By: #### 3499720, 28347117, 2696087 ####[address] [address]Xudwfiiso aminotransferase (AST)19 Int._Unit/LNormal5-43 [facility] HospitalComment on above:Performed By: #### 5660006, 89903934, 7101035 ####[facility] [address] [place], [place] [address]Ybtxkshqq (direct)mg/dLNormal0.1-0.4FFort Hamilton HospitalComment on above:Performed By: #### 8940693, 00720118, 2589186 ####[facility] [address] [place] [address]Byarelibi (total)0.2 mg/dLNormal0.0-1.1FFort Hamilton HospitalComment on above: Performed By: #### 3939828, 04100692, 3134425 ####[address] [address]Qrslryoh9.5 g/dLNormal1.4-4.0[facility] HospitalComment on above:Performed By: #### 6307222, 74271234, 0269365 ####[address] [address]Tlstuyh2.9 g/dLHigh6.0-7.8[facility] HospitalComment on above: Performed By: #### 8254885, 86040152, 6813821 ####[address] [address]iVMZah 08-56-6992rASU (black) mL/min/{1.73_m2}Normal>=59[facility] HospitalComment on above:Order Comment: Order added by Discern Expert.Result Comment: eGFR is race adjusted. AA=.Performed By: #### 4510718, 55512583, 1226468 ####[facility] [address] [place], [place] [address]sGTJ (non-black) mL/min/{1.73_m2}Normal>=59[facility] HospitalComment on above:Order Comment: Order added by Discern Expert.Result Comment: Chronic kidney disease could be indicated at eGFR's of less than 60 mL/min/1.73m2. Kidney failure is indicated at less than 15 mL/min/1.73m2.Performed By: #### 5606583, 41873157, 7107531 ####[facility] [address] [address]PBIOwb 30-28-9276ESEVFdludt Visit (RADTSA) CAITLYN RESTREPO ([id number]) 1990 F Date Time Provider Department 10/03/17 [...] Ronnell Evangelista MD cc: Julienne Horta MD ([facility]) Dr. Albright Referring Provider: Ronnell EVANGELISTA [[id number]] Allergies As of Date: 10/03/2017 Noted Allergy Reaction SEPTRA (SULFAMETHOXAZOLE-TRIMETHO*07/19/2016 4 - Hives Date Reviewed: 10/03/2017 Reviewed by: Houston (Rn) LANE Wong - Fully Assessed Reason for Visit: Thyroid Cancer [879] Primary Visit Diagnosis:Thyroid cancer (HCC) [C73] Order(s):THYROGLOBULIN BLD [SQTG] Order #: [id number] FUTURE THYROGLOBULIN AB [SQTGAB] Order #: [id number] FUTURE Prescriptions as of 10/03/2017 Sig: CYTOMEL ORAL Take 10 mcg by mouth. LEVOTHYROXINE 200 MCG TABLET TRI-SPRINTEC (28) 0.18 MG(7)/* Problem List As Of Date 10/03/2017 Noted Resolved Thyroid cancer (HCC) [C73] INVALID FOR* Disposition: Return in about 6 months (around 04/04/2018). Follow-up and Disposition History Recorded Encounter Status:Closed by Ronnell EVANGELISTA MD on 10/05/17[facility] [id number] mass concHNO ID: [id number] Author: Ronnell Evangelista Service: (none) Author Type: [...] Latest Ref Range: <14.4 IU/mL 1.8 Thyroglobulin 08/09/16 5.3, thyroglobulin antibody < 1.0. [...] Ronnell Evangelista MD cc: Julienne Horta MD ([facility]) Dr. FloresMer[facility]. Anne HospitalThyroglobulinon 67-19-9766NA Antibody Screen1.8 IU/mLNormal<14.4CMercy Health St. Anne HospitalComment on above: Performed By: #### TGAB, TG #### [facility] [address] [id number] [phone] ng/mLNormal1.6-59.9CMercy Health St. Anne Hospital Comment on above:Result Comment: Test analyzed by the Siemens Immulite method Performed By: #### TGAB, TG #### [facility] [address] [place], [place] [address] [phone] Abon 21-44-0035Wuwjapzdszcjx Ab Qn1.8 [IU]/mLNormal <14.4CMercy Health St. Anne HospitalComment on above:Performed By: #### TGAB, TG #### [facility] [address] [place] [address] BEKAVYSrc 69-11-8677UIEMZRVMknyc Visit (RADTSA) CAITLYN RESTREPO ([id number]) 1990 F Date Time Provider Department 09/18/17 11:00 AM NURSE YENNI MARTIN During your visit today, we recorded the following information about you: Temperature Pulse Respiration Blood pressure 98.4 degrees 69/minute 18/minute 108/70 Weight 93 kg Referring Provider: Ronnell EVANGELISTA [[id number]] Allergies As of Date: 09/18/2017 Noted Allergy Reaction SEPTRA (SULFAMETHOXAZOLE-TRIMETHO*07/19/2016 4 - Hives Date Reviewed: 03/13/2017 Reviewed by: Houston (Rn) LANE Wong - Fully Assessed Reason for Visit: Imm/Inj [...] INTRAMUSCULA Encounter Status:Closed by HOUSTON WONG on [facility]/18/17[facility] [id number] Visit (RADTSA) CAITLYN RESTREPO ([id number]) 1990 F Date Time Provider Department 09/17/17 10:00 AM NURSE YENNI MARTIN During your visit today, we recorded the following information about you: Temperature Pulse Blood pressure Weight 98.6 degrees 84/minute 134/74 93 kg Referring Provider: Ronnell EVANGELISTA [[id number]] Allergies As of Date: 09/17/2017 Noted Allergy Reaction SEPTRA (SULFAMETHOXAZOLE-TRIMETHO*07/19/2016 4 - Hives Date Reviewed: 03/13/2017 Reviewed [...] INTRAMUSCULA Encounter Status:Closed by HOUSTON WONG on 09/17/17[facility] [id number] Visit (JENNIFERTSA) CAITLYN RESTREPO ([id number]) 1990 F Date Time Provider Department 09/17/17 10:30 AM Ronnell EVANGELISTA During your visit today, we recorded the following information about you: Weight Height 93 kg 1.638 m Ronnell Evangelista MD 09/18/2017 10:40 AM Signed Addended by: Ronnell EVANGELISTA MD on: 09/18/2017 10:40 AM Modules accepted: Orders Referring Provider: Ronnell EVANGELISTA [[id number]] Allergies As of Date: 09/17/2017 Noted Allergy Reaction SEPTRA (SULFAMETHOXAZOLE-TRIMETHO*07/19/2016 4 - Hives Date Reviewed: 03/13/2017 Reviewed by: Houston (Rn) LANE Wong - Fully Assessed Primary Visit Diagnosis:Thyroid cancer (HCC) [C73] Prescriptions as of 09/17/2017 Sig: LEVOTHYROXINE 200 MCG TABLET TRI-SPRINTEC (28) 0.18 MG(7)/* Problem List As Of Date 09/17/2017 Noted Resolved Thyroid cancer (HCC) [C73] INVALID FOR* Encounter Status:Closed by Ronnell EVANGELISTA MD on [facility]/17/17[facility] Encounter DateEncounter TypeCare ProviderFacilityStart: 92-93-0832wzjclvwftn Quintin DamonFacility:[facility]art: 01-18-2024 End: 76-34-4809azynfzrhqrVPMC NADERERNot AvailableStart: 05-16-2023 End: 75-46-0412mwioampaizBRK RAMEYNot AvailableStart: 03-28-2023 End: 93-74-4659zzkvstygzeTlfdf Marek Work Phone: [facility] Work Phone: Start: 03-28-2023 End: 40-23-3964Vnchnagi ReferredCorey Marek Work Phone: [facility] [address] [place] Work Phone: Start: 09-11-2022 End: 00-92-9991sehrrdnmbnZCQKHEJO EBERLYFacility:J5Joeuw: 09-01-2022 End: 39-92-1890qsixfcmywjWG RODRICK MAREK .Facility:Z2Xopcd: 08-18-2022 End: 22-73-1183dyxtledsvuYQSO A NADERERFacility:O5Exjjs: 06-13-2022 End: 93-70-0504haezmdfgraBJOG A NADERERFacility:C1Xafhd: 03-22-2022 End: 91-04-6735hgthibptvoYHCHVKRF EBERLYFacility:O5Ymdjo: 11-17-2021 End: 30-45-9116xevckxmoifORHGVH H FAWWADFacility:A9Qgovl: 04-03-2018 End: 03-84-5441Odpkqep encounter procedureG [facility]: 04-03-2018 End: 59-63-0478Awmjadd encounter procedureG [facility]: 10-29-2017 End: 81-22-5874DzfvlcjkgmAxgjzfy Ronnell RitaeckFacility:FTMCStart: 10-03-2017 End: 21-78-6779Apkeqdd encounter procedureG [facility]: 09-21-2017 End: 82-61-9788Njkvxul encounter procedureG [facility]: 09-18-2017 End: 89-46-3964Lsbjfas encounter procedureG [facility]: 09-17-2017 End: 84-80-9164Shjdubh encounter procedureG [facility] Payers DatePayer CategoryPayerPolicy [id number] 2..1.862112.3.57[id number] 2..1.223846.3.57[id number] 2..1.809402.3.579.[id number] 2..1.375556.3.57[id number] 2..1.266114.3.57[id number] 2..1.030271.3.57[id number] 2..1.464847.3.579.2.[id number] 2..1.582265.3.579.2.368735-90-6685Shqx-[id number] [id number]-[id number]-966z-4w56-[id number] 2..1.370429.3.579.2.531 Social History DateTypeDetailFacilityTobacco smoking status NHISUnknown if ever smokedOhio [facility] Work Phone: Start: 04-05-7513Zfj Assigned At [facility] Evaluation note Note Date & TypeNoteFacilityEvaluation noteNo assessment information available [facility] Work Phone: Summary Purpose [...] section and content) DATE CREATED AUTHOR 12/17/2017 [facility] DATE CREATED AUTHOR AUTHOR'S ORGANIZ ATION 08/14/2018 [facility] DATE CREATED AUTHOR AUTHOR'S ORGANIZ ATION 09/16/2022 [facility] DATE CREATED AUTHOR AUTHOR'S ORGANIZ ATION 01/21/2024 [facility] DATE CREATED AUTHOR AUTHOR'S ORGANIZ ATION 08/30/2024 [facility] Care Teams (unrecognized sec tion and content) [...] BE BASED ON THE PRIMARY CLINICAL RECORDS. [facility], [facility]. provides no warranty or guarantee of the accuracy or completeness of information in this document.
[2025-04-13 23:05] VITALS: PULSE 85; TEMP 36.6; O2SAT 99; BMI 39.9
[2025-04-13 23:19] VITALS: BP 160/96
--- NOTE | 2025-04-13 23:31 | ED.NAVMDI1 ---
HPI - Nausea/Vomiting/Diarrhea General Chief complaint: Nausea/Vomiting/Diarrhea Stated complaint: UNCONTROLLABLE VOMITTING FOR 36 HOURS Time Seen by Provider: 04/13/25 23:15 Source: patient Mode of arrival: walk-in Limitations: no limitations History of Present Illness HPI Narrative: presents complaining of abdominal pain and recurrent vomiting for past 3 days. Similar symptoms with previous menses. Denies constipation. Has taken ibuprofen but it is not staying down. No hematemesis or fever. Related Data Home Medications ?Medication ?Instructions ?Recorded ?Confirmed labetalol 200 mg tablet 200 mg 03/20/23 levothyroxine 125 mcg tablet 250 mcg 03/20/23 liothyronine 5 mcg tablet 10 mcg 03/20/23 metoclopramide HCl 10 mg tablet mg 03/20/23 omeprazole 40 mg capsule,delayed 40 mg BID 03/20/23 release ondansetron HCl 4 mg tablet mg 03/20/23 Previous Rx's ?Medication ?Instructions ?Recorded labetalol 300 mg tablet 300 mg PO TID #90 tabs 03/29/23 Allergies Allergy/AdvReac Type Severity Reaction Status Date / Time Sulfa (Sulfonamide Allergy Mild itching Verified 04/13/25 23:14 Antibiotics) Bees Allergy Severe Anaphylaxis Uncoded 04/13/25 23:14 septra Allergy Mild itching Uncoded 04/13/25 23:14 Augmentin Allergy Unknown Diarrhea Uncoded 04/13/25 23:14 Review of Systems ROS Status of ROS 10 or more systems reviewed and unremarkable except as noted in history and below [facility] Medical History (Updated 04/14/25 @ 02:27 by Anibal Phoenix MD) Thyroid cancer ?C73 - Malignant neoplasm of thyroid gland (ICD-10) induced hypertension ?O13.9 - Gestational [-induced] hypertension without significant proteinuria, unspecified trimester (ICD-10) Surgical History (Updated 03/20/23 @ 11:54 by Lorena Negron RN) History of cholecystectomy ?Z90.49 - Acquired absence of other specified parts of digestive tract (ICD-10) H/O thyroidectomy ?E89.0 - Postprocedural hypothyroidism (ICD-10) Social History Little interest or pleasure in doing things: not at all Feeling down, depressed, or hopeless: not at all Exam Constitutional Vital Signs, click to edit/add: Last Vital Signs Temp 97.8 F 11/03/25 23:05 Pulse 85 04/13/25 23:05 Resp 18 04/14/25 01:19 BP 158/88 H 04/14/25 01:19 Pulse Ox 99 04/13/25 23:05 O2 Del Method Room Air 04/13/25 23:05 Common normals: no apparent distress, average body habitus, oriented x3, no limitations, healthy appearing, alert and well nourished [facility] Common normals: normocephalic and head/scalp atraumatic Eye Common normals: EOMs intact bilaterally and conjunctivae normal Respiratory Common normals: normal respiratory effort, no retractions, no use of accessory muscles and clear to auscultation bilaterally Cardio Common normals: regular rate, regular rhythm, S1 normal heart sound and S2 normal heart sound GI Common normals: Normal to inspection, nondistended, normoactive bowel sounds present and soft to palpation Other: gen.non specific tenderness Extremity Common normals: normal to inspection and full ROM Neuro Common normals: oriented x3, CN's II-XII intact bilaterally, moves all extremities and no focal motor deficits Psych Appearance: grossly normal Course Vital Signs Vital signs: Vital Signs Temperature 97.8 F 04/13/25 23:05 Pulse Rate 85 04/13/25 23:05 Respiratory Rate 24 H 04/13/25 23:05 Pulse Oximetry 99 04/13/25 23:05 Oxygen Delivery Method Room Air 04/13/25 23:05 Temperature 97.8 F 04/13/25 23:05 Pulse Rate 85 04/13/25 23:05 Respiratory Rate 18 04/14/25 01:19 Blood Pressure 158/88 H 04/14/25 01:19 Pulse Oximetry 99 04/13/25 23:05 Oxygen Delivery Method Room Air 04/13/25 23:05 MDM - Nausea/Vomiting/Diarrhea MDM Narrative Medical decision making narrative: patient presents complaining of recurrent vomiting and abdominal cramping related to her menstrual cycle. Patient hydrated and given reglan. CT abdomen unremarkable. She is feeling better and is advised to follow up with her doctor within the next couple of days for recheck Lab Data Labs: Lab Results 04/13/25 04/14/25 Range/Units 23:25 01:12 WBC 14.5 H (4.0-11.0) 10^3/uL RBC 4.73 (4.20-5.40) 10^6/uL Hgb 13.4 (12.0-16.0) g/dL Hct 41.2 (36.0-48.0) % MCV 87.1 (81.0-99.0) fL MCH 28.3 (26.7-34.0) pg MCHC 32.5 (29.9-35.2) g/dL RDW 13.6 (11.0-15.0) % Plt Count 378 (150-450) 10^3/uL MPV 10.5 (9.5-13.5) fL Neut % (Auto) 85.6 H (43.0-75.0) % Lymph % (Auto) 12.0 L (20.5-60.0) % [place] % (Auto) 1.9 (1.7-12.0) % Eos % (Auto) 0.0 L (0.9-7.0) % Baso % (Auto) 0.2 (0.2-2.0) % Neut # (Auto) 12.4 H (1.4-6.5) 10^3/uL Lymph # (Auto) 1.7 (1.2-3.8) 10^3/uL [place] # (Auto) 0.3 (0.3-0.8) 10^3/uL Eos # (Auto) 0.0 (0.0-0.7) 10^3/uL Baso # (Auto) 0.0 (0.0-0.1) 10^3/uL Abs Immat Gran (auto) 0.05 H (0.00-0.03) 10^3/uL Imm/Tot Granulo (auto) 0.3 (0.0-0.5) % Sodium 145 (136-145) mmol/L Potassium 3.2 L (3.5-5.1) mmol/L Chloride 107 (98-107) mmol/L Carbon Dioxide 26.9 (21.0-32.0) mmol/L Anion Gap 14.3 BUN 15.0 (7.0-18.0) mg/dL Creatinine 0.64 (0.55-1.02) mg/dL Est GFR ( Amer) >60 (>=60 mL/min/1.73m^2) Est GFR (Non-Af Amer) >60 (>=60 mL/min/1.73m^2) BUN/Creatinine Ratio 23.4 Glucose 185 H (74-106) mg/dL Lactate 1.5 (0.4-2.0) mmol/L Calcium 9.5 (8.5-10.1) mg/dL Total Bilirubin 0.3 (0.2-1.0) mg/dL AST 14 L (15-37) U/L ALT 28 (14-59) U/L Alkaline Phosphatase 76 (46-116) U/L Total Protein 8.0 (6.4-8.2) g/dL Albumin 4.3 (3.4-5.0) g/dL Globulin 3.7 g/dL Albumin/Globulin Ratio 1.2 Lipase 15.0 L (16.0-77.0) U/L Urine Color Yellow (YELLOW) Urine Clarity Clear (CLEAR) Urine pH 7.0 (5.0-9.0) Ur Specific [place] <=1.005 A (1.005-1.025) Urine Protein 30 A (NEG/TRACE) mg/dL Urine Glucose (UA) Negative (NEGATIVE) mg/dL Urine Ketones Negative (NEGATIVE) mg/dL Urine Occult Blood Large A (NEGATIVE) Urine Nitrite Negative (NEGATIVE) Urine Bilirubin Negative (NEGATIVE) Urine Urobilinogen 0.2 (0.2-1.0) EU/dL Ur Leukocyte Esterase Negative (NEGATIVE) Urine RBC 10-20 A (0-2) #/HPF Urine WBC None seen (NONE SEEN) #/HPF Ur Squamous Epith Cells Few A (NONE/RARE) #/LPF Urine Crystals None seen (None Seen) #/HPF Urine Bacteria None seen (NONE SEEN) #/HPF Urine Casts None seen (NONE SEEN) #/LPF Urine Mucus None seen (NONE SEEN) Ur Culture Indicated? No Discharge Plan Discharge Chief Complaint: Nausea/Vomiting/Diarrhea Clinical Impression: Recurrent vomiting Patient Disposition: Home, Self-Care Prescriptions / Home Meds: No Action labetalol 200 mg tablet 200 mg ondansetron HCl 4 mg tablet omeprazole 40 mg capsule,delayed release(DR/EC) 40 mg BID liothyronine 5 mcg tablet 10 mcg levothyroxine 125 mcg tablet 250 mcg metoclopramide HCl 10 mg tablet labetalol 300 mg tablet 300 mg PO TID Qty: 90 0RF Print Language: Jamaican Instructions: Acute Nausea and Vomiting (ED) Referrals: Skinny Melendez MD [Primary Care Provider, Family Practice] - 1 week
[2025-04-13 23:34] LABS: Hematocrit 41.2 % (36.0-48.0); Hemoglobin 13.4 g/dL (12.0-16.0); Immature Granulocytes Abs Auto 0.05 10^3/uL (0.00-0.03); Immature Granulocytes Pct Auto 0.3 % (0.0-0.5); Lymphocytes Absolute Auto 1.7 10^3/uL (1.2-3.8); Mean Corpuscular HGB Conc 32.5 g/dL (29.9-35.2); Mean Corpuscular Hemoglobin 28.3 pg (26.7-34.0); Mean Corpuscular Volume 87.1 fL (81.0-99.0); Platelet Count 378 10^3/uL (150-450); Red Blood Count 4.73 10^6/uL (4.20-5.40); White Blood Count 14.5 10^3/uL (4.0-11.0)
[2025-04-13] MEDS: 0.9 % SODIUM CHLORIDE 1,000 ML 999 ML IV ×2 (23:40→23:41)
[2025-04-13] MEDS: KETOROLAC TROMETHAMINE 30 MG/ML VIAL IVP (23:41)
[2025-04-13] MEDS: METOCLOPRAMIDE HCL 10 MG/2 ML VIAL IVP (23:41)
[2025-04-13] MEDS: DIPHENHYDRAMINE HCL 50 MG/ML VIAL IVP (23:41)
[2025-04-13 23:46] LABS: Alanine Aminotransferase 28 U/L (14-59); Albumin Globulin Ratio 1.2; Albumin Level 4.3 g/dL (3.4-5.0); Alkaline Phosphatase 76 U/L (46-116); Anion Gap 14.3; Aspartate Amino Transferase 14 U/L (15-37); Blood Urea Nitrogen 15.0 mg/dL (7.0-18.0); Calcium 9.5 mg/dL (8.5-10.1); Carbon Dioxide 26.9 mmol/L (21.0-32.0); Chloride 107 mmol/L (98-107); Estimated GFR (African America >60 (>=60 mL/min/1.73m^2); Estimated GFR (Non-African Ame >60 (>=60 mL/min/1.73m^2); Globulin 3.7 g/dL; Glucose 185 mg/dL (74-106); Lipase 15.0 U/L (16.0-77.0); Potassium 3.2 mmol/L (3.5-5.1); Sodium 145 mmol/L (136-145); Total Protein 8.0 g/dL (6.4-8.2)
[2025-04-13 23:49] LABS: Lactate/Lactic Acid 1.5 mmol/L (0.4-2.0)
[2025-04-14 01:19] VITALS: BP 158/88
[2025-04-14 01:20] LABS: Glucose Urine UA NEGATIVE (NEGATIVE)
[2025-04-14 01:26] LABS: Cast Seen? NONE SEEN #/LPF (NONE SEEN); Crystals Seen? None Seen #/HPF (None Seen); Urine Culture Indicated NO
== END 2025-04-14 02:30 | disposition home or self-care (01) ==
PROVIDERS: Emergency Provider Internal Medicine; PCP Family Medicine
DX: R11.2 Nausea with vomiting, unspecified (principal); Z90.49 Acquired absence of other specified parts of digestive tract
CPT/HCPCS: 36415; 74177; 80053; 81001; 83605; 83690; 85025; 96361; 96374; 96375; 99284; J1200; J1885; J2765; Q9967

== ENCOUNTER 2025-05-13 16:01 | Outpatient (OUT) | payer OTHER, SELFPAY | END 2025-05-13 16:02 | disposition home or self-care (01) | LOC: LAB 16:01 | PROVIDERS: PCP Family Medicine; Visit Provider Nurse Practitioner Family | DX: E03.9 Hypothyroidism, unspecified (principal) | CPT/HCPCS: 36415; 84436; 84439; 84443; 84481 ==